=== PATIENT | female | born 1940 | race Caucasian/White ===

== ENCOUNTER 2017-11-03 06:51 | Day surgery (SDC) | payer MEDICARE, BC ==
--- NOTE | 2017-11-03 07:05 | PCM.PREANE ---
Preanesthetic Assessment - Anesthesia/Transfusion/Family Hx Anesthesia History: Prior Anesthesia Without Reaction Family History of Anesthesia Reaction: No Transfusion History: Prior Transfusion Without Reaction Intubation History: Unknown - Review of Systems General: No Symptoms Pulmonary: No Symptoms Cardiovascular: No Symptoms Gastrointestinal: No Symptoms Neurological: No Symptoms Other: Reports: None - Physical Assessment NPO Status Date: 11/02/17 NPO Status Time: 19:30 Pulse: 73 O2 Sat by Pulse Oximetry: 96 Respiratory Rate: 16 Blood Pressure: 133/80 Temperature: 97.0 C ASA Class: 2 Mental Status: Alert & Oriented x3 Airway Class: Mallampati = 1 Dentition: Reports: Normal Dentition Thyro-Mental Finger Breadths: 3 Mouth Opening Finger Breadths: 3 ROM/Head Extension: Full Lungs: Clear to Auscultation, Normal Respiratory Effort Cardiovascular: Regular Rate, Regular Rhythm - Allergies Allergies/Adverse Reactions: Allergies Allergy/AdvReac Type Severity Reaction Status Date / Time No Known Allergies Allergy Verified 11/02/17 13:26 - Anesthesia Plan Beta Ramon: Metoprolol Med Last Dose Date: 11/03/17 - Acknowledgements Anesthesia Type Planned: MAC Pt an Appropriate Candidate for the Planned Anesthesia: Yes Alternatives and Risks of Anesthesia Discussed w Pt/Guardian: Yes Pt/Guardian Understands and Agrees with Anesthesia Plan: Yes PreAnesthesia Questionnaire HEENT History: Reports: Cataract Cardiovascular History: Reports: Afib, Hypertension Respiratory History: Reports: None Gastrointestinal History: Reports: None, GERD (occas heartburn mainly with spicy foods) Genitourinary History: Reports: None 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 Musculoskeletal History: Reports: None Neurological History: Reports: None Psychiatric History: Reports: None Endocrine/Metabolic History: Reports: Hypothyroidism Hematologic History: Reports: None - Past Surgical History Head Surgeries/Procedures: Reports: None HEENT Surgical History: Reports: None Cardiovascular Surgical History: Reports: None Respiratory Surgical History: Reports: None GI Surgical History: Reports: None Female Surgical History: Reports: Hysterectomy Endocrine Surgical History: Reports: None Neurological Surgical History: Reports: None Musculoskeletal Surgical History: Reports: None Oncologic Surgical History: Reports: None Dermatological Surgical History: Reports: None - SUBSTANCE USE Smoking Status *Q: Never Smoker - HOME MEDS Home Medications: Home Meds Apixaban [Eliquis] 5 mg PO BID 11/02/17 [History] Ferrous Sulfate [Iron] 325 mg PO DAILY 11/02/17 [History] Gluc/Deep-Msm#1/Vit C/Jose Luis/Bor [Ovdxjst-Hcmpg-WGZ Complex Cplt] 1 tab PO DAILY 11/02/17 [History] Levothyroxine 25 mcg PO DAILY 11/02/17 [History] Losartan [Cozaar] 100 mg PO DAILY 11/02/17 [History] Lutein/Minerals/Vit A,C & E [Ocuvite] 1 tab PO DAILY 11/02/17 [History] Metoprolol Succinate 200 mg PO DAILY 11/02/17 [History] Rosuvastatin [Crestor] 10 mg PO DAILY 11/02/17 [History] Vitamin B Complex 1 cap PO DAILY 11/02/17 [History] amLODIPine Besylate [Amlodipine Besylate] 5 mg PO DAILY 11/02/17 [History] - CURRENT (IN HOUSE) MEDS Current Meds: Current Medications Brimonidine Tartrate (Alphagan 0.2% Ophth Soln) 0 ml EYELF ASDIRECTED ESTHER Stop: 11/03/17 18:00 Cefuroxime Sodium (Zinacef) 0 mg EYELF ASDIRECTED ESTHER Stop: 11/03/17 18:00 Lidocaine HCl (Xylocaine-Mpf 1%) 10 ml INJECT ASDIRECTED ESTHER Stop: 11/03/17 18:00 Phenylephrine HCl (Carlos Enrique-Synephrine 2.5% Ophth Soln) 0 ml EYELF ASDIRECTED ESTHER Stop: 11/03/17 18:00 Pilocarpine HCl (Pilocar 4% Ophth Soln) 0 ml EYELF ASDIRECTED ESTHER Stop: 11/03/17 18:00 Polymyxin/Trimethoprim Sulfate (Polytrim Ophth Soln) 0 ml EYELF ASDIRECTED ESTHER Stop: 11/03/17 18:00 Tetracaine HCl (Tetracaine 0.5% Steri-Unit Keira) 0 ml EYELF ASDIRECTED ESTHER Stop: 11/03/17 18:00 Tropicamide (Mydriacyl 1% Ophth Soln) 0 ml EYELF ASDIRECTED ESTHER Stop: 11/03/17 18:00
[2017-11-03] MEDS: Polymyxin B/Trimethoprim 10 ML Bottle EYELF SCH ×4 (07:08→08:40)
[2017-11-03] MEDS: Brimonidine 0.2% Ophth Soln 5 ML Bottle EYELF SCH ×4 (07:12→08:40)
[2017-11-03] MEDS: Phenylephrine 2.5% Ophth Soln 2 ML Bot EYELF SCH ×6 (07:16→08:19)
[2017-11-03] MEDS: Lidocaine 1% PF 2 ML SDV INJECT SCH ×2 (08:05→08:26)
[2017-11-03] MEDS: Tetracaine HCl/PF 0.5% 4 ML Bottle EYELF SCH ×3 (08:05→08:28)
[2017-11-03] MEDS: Cefuroxime 10 MG/ML SYRINGE EYELF SCH ×2 (08:06→08:39)
[2017-11-03] MEDS: Pilocarpine 4% Ophth Soln 15 ML Bot EYELF SCH ×2 (08:06→08:40)
--- NOTE | 2017-11-03 08:44 | PCM48HPAN ---
Post Anesthesia Note - EVALUATION WITHIN 48HRS OF ANESTHETIC Vital Signs in Normal Range: Yes Patient Participated in Evaluation: Yes Respiratory Function Stable: Yes Airway Patent: Yes Cardiovascular Function Stable: Yes Hydration Status Stable: Yes Pain Control Satisfactory: Yes Nausea and Vomiting Control Satisfactory: Yes Mental Status Recovered: Yes Pulse Rate: 73 SaO2: 96 Resp Rate: 16 Temperature: 97.0 C Blood Pressure: 133/80
== END 2017-11-03 08:50 | disposition home or self-care (01) ==
LOC: JD.SDS 06:51
PROVIDERS: ATTEND Ophthalmology
DX: H25.813 Combined forms of age-related cataract, bilateral (principal); H35.3131 Nonexudative age-related macular degeneration, bilateral, early dry stage; H35.363 Drusen (degenerative) of macula, bilateral; H16.103 Unspecified superficial keratitis, bilateral; H16.223 Keratoconjunctivitis sicca, not specified as Sjogren's, bilateral; H02.834 Dermatochalasis of left upper eyelid; H02.831 Dermatochalasis of right upper eyelid; I48.91 Unspecified atrial fibrillation; I10 Essential (primary) hypertension; E03.9 Hypothyroidism, unspecified; K21.9 Gastro-esophageal reflux disease without esophagitis; Z90.710 Acquired absence of both cervix and uterus; Z79.899 Other long term (current) drug therapy; Z79.02 Long term (current) use of antithrombotics/antiplatelets
CPT/HCPCS: 66984; C1780; J0697; A9270-GY; J2001

== ENCOUNTER 2017-12-08 09:56 | Day surgery (SDC) | payer MEDICARE, BC ==
[~2017-12-08 09:56] MED LIST: Cefuroxime 10 MG/ML SYRINGE EYERT SCH; Lidocaine 1% PF 2 ML SDV INJECT SCH; Pilocarpine 4% Ophth Soln 15 ML Bot EYERT SCH
[2017-12-08] MEDS: Polymyxin B/Trimethoprim 10 ML Bottle EYERT SCH ×3 (10:15→11:52)
[2017-12-08] MEDS: Brimonidine 0.2% Ophth Soln 5 ML Bottle EYERT SCH ×3 (10:19→11:52)
[2017-12-08] MEDS: Phenylephrine 2.5% Ophth Soln 2 ML Bot EYERT SCH ×5 (10:23→11:32)
--- NOTE | 2017-12-08 10:23 | PCM.PREANE ---
Preanesthetic Assessment - Anesthesia/Transfusion/Family Hx Anesthesia History: Prior Anesthesia Without Reaction Transfusion History: Prior Transfusion Without Reaction Intubation History: Unknown - Review of Systems General: No Symptoms Pulmonary: No Symptoms Cardiovascular: Other (Atrial fibrillation noted. On Eliquis. No changes noted. ) Neurological: No Symptoms Other: Reports: Easy Bruising, Thyroid Problems, Anxiety (Feeling very anxious today. She is not sure why. ) - Physical Assessment NPO Status Date: 12/07/17 NPO Status Time: 20:00 O2 Sat by Pulse Oximetry: 97 Respiratory Rate: 16 Vital Signs: Last Vital Signs Temp 36.3 C 12/08/17 10:00 Pulse 113 H 12/08/17 10:00 Resp 16 12/08/17 10:00 BP 151/91 H 12/08/17 10:00 Pulse Ox 97 12/08/17 10:00 Height: 1.65 m Weight: 68.039 kg ASA Class: 2 Mental Status: Alert & Oriented x3 Airway Class: Mallampati = 2 Thyro-Mental Finger Breadths: 3 Mouth Opening Finger Breadths: 3 ROM/Head Extension: Full Lungs: Clear to Auscultation, Normal Respiratory Effort Cardiovascular: Regular Rate, Regular Rhythm - Allergies Allergies/Adverse Reactions: Allergies Allergy/AdvReac Type Severity Reaction Status Date / Time No Known Allergies Allergy Verified 12/07/17 15:15 - Anesthesia Plan Beta Ramon: Metoprolol Med Last Dose Date: 12/08/17 Med Last Dose Time: 06:00 - Acknowledgements Anesthesia Type Planned: MAC Pt an Appropriate Candidate for the Planned Anesthesia: Yes Alternatives and Risks of Anesthesia Discussed w Pt/Guardian: Yes Pt/Guardian Understands and Agrees with Anesthesia Plan: Yes PreAnesthesia Questionnaire HEENT History: Reports: Cataract Cardiovascular History: Reports: Afib, Hypertension Respiratory History: Reports: None Gastrointestinal History: Reports: None, GERD (occas heartburn mainly with spicy foods) Genitourinary History: Reports: None 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 Musculoskeletal History: Reports: None Neurological History: Reports: None Psychiatric History: Reports: None Endocrine/Metabolic History: Reports: Hypothyroidism Hematologic History: Reports: None - Past Surgical History Head Surgeries/Procedures: Reports: None HEENT Surgical History: Reports: None Cardiovascular Surgical History: Reports: None Respiratory Surgical History: Reports: None GI Surgical History: Reports: None Female Surgical History: Reports: Hysterectomy Endocrine Surgical History: Reports: None Neurological Surgical History: Reports: None Musculoskeletal Surgical History: Reports: None Oncologic Surgical History: Reports: None Dermatological Surgical History: Reports: None - HOME MEDS Home Medications: Home Meds Apixaban [Eliquis] 5 mg PO BID 11/02/17 [History] Ferrous Sulfate [Iron] 325 mg PO DAILY 11/02/17 [History] Gluc/Deep-Msm#1/Vit C/Jose Luis/Bor [Edyzwhi-Rtgqe-CEK Complex Cplt] 1 tab PO DAILY 11/02/17 [History] Levothyroxine 25 mcg PO DAILY 11/02/17 [History] Losartan [Cozaar] 100 mg PO DAILY 11/02/17 [History] Lutein/Minerals/Vit A,C & E [Ocuvite] 1 tab PO DAILY 11/02/17 [History] Metoprolol Succinate 200 mg PO DAILY 11/02/17 [History] Rosuvastatin [Crestor] 10 mg PO DAILY 11/02/17 [History] Vitamin B Complex 1 cap PO DAILY 11/02/17 [History] amLODIPine Besylate [Amlodipine Besylate] 5 mg PO DAILY 11/02/17 [History] - CURRENT (IN HOUSE) MEDS Current Meds: Current Medications Brimonidine Tartrate (Alphagan 0.2% Ophth Soln) 0 ml EYERT ASDIRECTED ESTHER Stop: 12/08/17 18:00 Cefuroxime Sodium (Zinacef) 0 mg EYERT ASDIRECTED ESTHER Stop: 12/08/17 18:00 Lidocaine HCl (Xylocaine-Mpf 1%) 0 ml INJECT ASDIRECTED ESTHER Stop: 12/08/17 18:00 Phenylephrine HCl (Carlos Enrique-Synephrine 2.5% Ophth Soln) 0 ml EYERT ASDIRECTED ESTHER Stop: 12/08/17 18:00 Pilocarpine HCl (Pilocar 4% Ophth Soln) 0 ml EYERT ASDIRECTED ESTHER Stop: 12/08/17 18:00 Polymyxin/Trimethoprim Sulfate (Polytrim Ophth Soln) 0 ml EYERT ASDIRECTED ESTHER Stop: 12/08/17 18:00 Last Admin: 12/08/17 10:15 Dose: 1 drop Tetracaine HCl (Tetracaine 0.5% Steri-Unit Keira) 0 ml EYERT ASDIRECTED ESTHER Stop: 12/08/17 18:00 Tropicamide (Mydriacyl 1% Oph Soln) 0 ml EYERT ASDIRECTED ESTHER Stop: 12/08/17 18:00
[2017-12-08] MEDS: Tropicamide 1% Ophth Soln 3 ML Bottle EYERT SCH ×4 (10:30→11:11)
[2017-12-08] MEDS: Tetracaine HCl/PF 0.5% 4 ML Bottle EYERT SCH ×2 (11:19→11:40)
--- NOTE | 2017-12-08 11:56 | PCM48HPAN ---
Post Anesthesia Note - EVALUATION WITHIN 48HRS OF ANESTHETIC Vital Signs in Normal Range: Yes Patient Participated in Evaluation: Yes Respiratory Function Stable: Yes Airway Patent: Yes Cardiovascular Function Stable: Yes Hydration Status Stable: Yes Pain Control Satisfactory: Yes Nausea and Vomiting Control Satisfactory: Yes Mental Status Recovered: Yes Pulse Rate: 111 SaO2: 99 Resp Rate: 16 Blood Pressure: 135/80
== END 2017-12-08 12:05 | disposition home or self-care (01) ==
LOC: JD.SDS 09:56
PROVIDERS: ATTEND Ophthalmology
DX: H25.811 Combined forms of age-related cataract, right eye (principal); H21.81 Floppy iris syndrome; I48.91 Unspecified atrial fibrillation; H21.40 Pupillary membranes, unspecified eye; I10 Essential (primary) hypertension; K21.9 Gastro-esophageal reflux disease without esophagitis; E03.9 Hypothyroidism, unspecified; H35.363 Drusen (degenerative) of macula, bilateral; H35.3131 Nonexudative age-related macular degeneration, bilateral, early dry stage; Z79.01 Long term (current) use of anticoagulants; Z79.899 Other long term (current) drug therapy
CPT/HCPCS: 66982; C1780; J0697; J2001; A9270-GY

== ENCOUNTER 2019-08-24 07:05 | Day surgery (SDC) | payer MEDICARE, BC ==
[~2019-08-24 07:05] MED LIST changes: -Cefuroxime 10 MG/ML SYRINGE EYERT SCH; +Lactated Ringers 1,000 ML IV SCH; -Lidocaine 1% PF 2 ML SDV INJECT SCH; +Lidocaine 1%/Sod Bicarbonate in NS 8.4% 1 ML Syringe IDERM PRN; -Pilocarpine 4% Ophth Soln 15 ML Bot EYERT SCH; +Sodium Chloride 0.9% 10 ML Syringe FLUSH PRN
[2019-08-24] MEDS ORDERED: Propofol 200 MG/20 ML SDV ONE (07:12)
[2019-08-24] MEDS ORDERED: Lidocaine 1% 4 ML ONE (07:12)
[2019-08-24] MEDS ORDERED: Ondansetron 4 MG/2 ML SDV ONE (07:12)
[2019-08-24] MEDS ORDERED: Rocuronium 50 MG/5 ML Vial ONE (07:12)
[2019-08-24] MEDS ORDERED: fentaNYL 250 MCG/5 ML SDV ONE (07:12)
[2019-08-24] MEDS ORDERED: Midazolam 1 MG/ML 2 ML SDV ONE (07:12)
[2019-08-24] MEDS ORDERED: Lidocaine 1% with EPINEPHrine 1:100,000 20 ML MDV ONE (07:22)
[2019-08-24] MEDS ORDERED: Bupivacaine 0.5%/EPINEPHrine 1:200,000 50 ML MDV ONE (07:22)
--- NOTE | 2019-08-24 07:28 | PCM.PREANE ---
Preanesthetic Assessment - Procedure Proposed Procedure: lap choley - Anesthesia/Transfusion/Family Hx Anesthesia History: Prior Anesthesia Without Reaction Family History of Anesthesia Reaction: No Transfusion History: Prior Transfusion Without Reaction Intubation History: Unknown - Review of Systems General: No Symptoms Pulmonary: No Symptoms Cardiovascular: No Symptoms Gastrointestinal: Abdominal Pain (abdominal pain right side) Neurological: No Symptoms Other: Reports: Thyroid Problems - Physical Assessment NPO Status Date: 08/23/19 NPO Status Time: 21:00 Vital Signs: 128/81 66 98% 97.4 16 Height: 5 ft 4 in Weight: 63.185 kg ASA Class: 2 Mental Status: Alert & Oriented x3 Airway Class: Mallampati = 1 Dentition: Reports: Normal Dentition Thyro-Mental Finger Breadths: 3 Mouth Opening Finger Breadths: 3 ROM/Head Extension: Full Lungs: Clear to Auscultation, Normal Respiratory Effort Cardiovascular: Regular Rate, Irregular Rhythm - Allergies Allergies/Adverse Reactions: Allergies Allergy/AdvReac Type Severity Reaction Status Date / Time rosuvastatin [From Crestor] Allergy Muscle Verified 08/23/19 15:22 Aches - Blood Blood Available: No - Anesthesia Plan Beta Ramon: Metoprolol Med Last Dose Date: 08/24/19 Med Last Dose Time: 06:15 - Acknowledgements Anesthesia Type Planned: General Anesthesia Pt an Appropriate Candidate for the Planned Anesthesia: Yes Alternatives and Risks of Anesthesia Discussed w Pt/Guardian: Yes Pt/Guardian Understands and Agrees with Anesthesia Plan: Yes PreAnesthesia Questionnaire HEENT History: Reports: Cataract, Impaired Vision Other HEENT History: wears glasses Cardiovascular History: Reports: Afib, CAD, High Cholesterol, Hypertension Respiratory History: Reports: None Gastrointestinal History: Reports: Cholelithiasis, Colon Polyp, Diverticulosis, GERD Other Gastrointestinal History: schatzski's ring Genitourinary History: Reports: None 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 Musculoskeletal History: Reports: None Neurological History: Reports: None Psychiatric History: Reports: None Endocrine/Metabolic History: Reports: Hypothyroidism Hematologic History: Reports: Anemia, Anticoagulation Therapy Immunologic History: Reports: None Oncologic (Cancer) History: Reports: None Dermatologic History: Reports: None - Past Surgical History Head Surgeries/Procedures: Reports: None HEENT Surgical History: Reports: None, Cataract Surgery Cardiovascular Surgical History: Reports: None Respiratory Surgical History: Reports: None GI Surgical History: Reports: None, Appendectomy, Colonoscopy, EGD Female Surgical History: Reports: Hysterectomy Male Surgical History: Reports: None Endocrine Surgical History: Reports: None Neurological Surgical History: Reports: None Musculoskeletal Surgical History: Reports: None Oncologic Surgical History: Reports: None Dermatological Surgical History: Reports: None - SUBSTANCE USE Smoking Status *Q: Never Smoker Tobacco Use Within Last Twelve Months: No Second Hand Smoke Exposure: No Days Per Week of Alcohol Use: 0 Recreational Drug Use History: No - HOME MEDS Home Medications: Home Meds Apixaban [Eliquis] 5 mg PO BID 11/02/17 [History] Levothyroxine 25 mcg PO DAILY 11/02/17 [History] Losartan [Cozaar] 100 mg PO DAILY 11/02/17 [History] Metoprolol Succinate 200 mg PO DAILY 11/02/17 [History] amLODIPine Besylate [Amlodipine Besylate] 5 mg PO DAILY 11/02/17 [History] Ascorbic Acid [Vitamin C] 250 mg PO DAILY 08/23/19 [History] Cholecalciferol (Vitamin D3) [Vitamin D3] 1,000 unit PO DAILY 08/23/19 [History] Cranberry Fruit Extract [Cranberry] 300 mg PO DAILY 08/23/19 [History] Docusate Sodium [Colace] 100 mg PO TID 08/23/19 [History] Ferrous Sulfate [Iron] 325 mg PO DAILY 08/23/19 [History] Folic Acid/Vitamin B Comp W-C [Super B-Complex Folic-Vit C Tb] 400 mcg PO DAILY 08/23/19 [History] Glucosam/Deep-Col.Cplx/D3/C/Mn [Pjdpfadxhqk-Mfpdultkuet-E0] 1 tab PO DAILY 08/23 [History] Omeprazole Magnesium [Prilosec Otc] 20 mg PO DAILY PRN 08/23/19 [History] Psyllium [Metamucil] 0.52 gm PO BID 08/23/19 [History] Red Yeast Rice 600 mg PO DAILY 08/23/19 [History] polyethylene glycoL 3350 [MiraLAX] 17 gm PO DAILY 08/23/19 [History] - CURRENT (IN HOUSE) MEDS Current Meds: Current Medications Lactated Ringer's (Ringers, Lactated) 1,000 mls @ 125 mls/hr IV ASDIRECTED ESTHER Stop: 08/24/19 23:00 Lidocaine/Sodium Bicarbonate (Buffered Lidocaine 1% In Ns 8.4%) 0.25 ml IDERM ONETIME PRN PRN Reason: Prior to IV Start Stop: 08/24/19 16:00 Sodium Chloride (Saline Flush) 10 ml FLUSH ASDIRECTED PRN PRN Reason: Keep Vein Open Stop: 08/24/19 18:00 Discontinued Medications Fentanyl (Sublimaze) Confirm Administered Dose 250 mcg .ROUTE .STK-MED ONE Stop: 08/24/19 07:13 Lidocaine HCl (Xylocaine-Mpf 1%) Confirm Administered Dose 4 mls @ as directed .ROUTE .STK-MED ONE Stop: 08/24/19 07:13 Midazolam HCl (Versed 1 Mg/Ml) Confirm Administered Dose 2 mg .ROUTE .STK-MED ONE Stop: 08/24/19 07:13 Ondansetron HCl (Zofran) Confirm Administered Dose 4 mg .ROUTE .STK-MED ONE Stop: 08/24/19 07:13 Propofol (Diprivan 20 Ml) Confirm Administered Dose 200 mg .ROUTE .STK-MED ONE Stop: 08/24/19 07:13 Rocuronium [place] (Zemuron) Confirm Administered Dose 50 mg .ROUTE .STK-MED ONE Stop: 08/24/19 07:13
[2019-08-24] MEDS ORDERED: ceFAZolin 1 GM Vial ONE (07:51)
[2019-08-24] MEDS ORDERED: Phenylephrine/Normal Saline 100 MCG/ML 10 ML Syringe ONE (08:10)
[2019-08-24] MEDS ORDERED: fentaNYL 100 MCG/2 ML SDV IVPUSH PRN (08:23)
[2019-08-24] MEDS ORDERED: Ondansetron 4 MG/2 ML SDV IVPUSH PRN (08:23)
[2019-08-24] MEDS ORDERED: HYDROmorphone 0.5 MG/0.5 ML Syringe IVPUSH PRN (08:23)
[2019-08-24] MEDS ORDERED: Neostigmine Methylsulfate 1 MG/ML 5 ML Syringe ONE (08:27)
[2019-08-24] MEDS ORDERED: Lactated Ringers 1,000 ML ONE (08:47)
--- NOTE | 2019-08-24 09:07 | PCM.POSTAN ---
POST ANESTHESIA ASSESSMENT - MENTAL STATUS Mental Status: Alert, Oriented - VITAL SIGNS Vital Signs: Last Vital Signs Temp 97.4 F 08/24/19 07:10 Pulse 66 08/24/19 07:10 Resp 16 08/24/19 07:10 BP 128/81 08/24/19 07:10 Pulse Ox 98 08/24/19 07:10 146/92 111 10 98.0 99% - RESPIRATORY Respiratory Status: Respiratory Rate WNL, Airway Patent, O2 Saturation Stable, Supplemental Oxygen - CARDIOVASCULAR CV Status: Pulse Rate WNL, Blood Pressure Stable - GASTROINTESTINAL GI Status: No Symptoms - PAIN Pain Score: 3 - POST OP HYDRATION Hydration Status: Adequate & Stable
--- NOTE | 2019-08-24 09:11 | PCM.OPNOTE ---
- General Post-Op/Procedure Note Date of Surgery/Procedure: 08/24/19 Operative Procedure(s): Diagnostic laparoscopy with biopsy Findings: Gallbladder mass with peritoneal implants Pre Op Diagnosis: Cholelithiasis Post-Op Diagnosis: Gallbladder mass with peritoneal implants Anesthesia Technique: General ET Tube Primary Surgeon: Sarah Olivia Anesthesia Provider: Valdez Rodrígeuz Pathology: 1. Ascites fluid for cytology 2. Right abdominal wall peritoneal implants Fluid Replacement, Intraop: 1,000 Output, Urine Amount: 0 EBL in mLs: 2 Complications: none apparent Condition: Good
--- NOTE | 2019-08-24 09:41 | PCM.PRNOTE ---
- Free Text/Narrative Note: Operative Report Date of surgery: August 24, 2019 Preoperative diagnosis: Cholelithiasis Postoperative diagnosis: Gallbladder mass with peritoneal implants Procedure: Diagnostic laparoscopy with biopsy Surgeon: Dr. Sarah Olivia Anesthesia: General ET Local Tanker Truck Driver: Valdez Rodríguez CRNA Estimated blood loss: 2 mL IV fluids: 1000 mL Urine output: 0 mL Drains and lines: None Findings: Mass involving the gallbladder which was extending to the liver edge and surrounding omentum. Peritoneal implants noted along the right diaphragm and bilateral abdominal baxter. Peritoneal implants also noted on the omentum. Tethering of the omentum to the abdominal wall near the umbilicus Pathology: 1. Ascites sent for cytology 2. Peritoneal implants from right abdominal wall Indication for the procedure: The patient is a 79-year-old lady presented to my clinic with complaints of right upper quadrant pain. She did have other abdominal pain still changes which resulted in her undergoing a colonoscopy. This is unrevealing for the etiology of her pain. Upon further analysis her symptoms did appear to be due to cholelithiasis. She has a preoperative imaging which does indicate presence of cholelithiasis. She was scheduled for laparoscopic cholecystectomy, open. Discussed risks of infection bleeding and possible bile duct injury. Her written consent was obtained. Description of the procedure: The patient was brought to the operating room and placed in supine position on the operating table. She had successful induction of general anesthesia and was intubated without difficulty. The patient did have administration of antibiotics per SCI P guidelines, 2 g Ancef IV 1. She was then prepped and draped in standard surgical fashion and a timeout was performed. We began by making a infraumbilical vertical incision. This was deepened down to the fascia which was entered sharply using curved Carpio scissors. Upon opening the fascia, we noted peritoneal fluid extruded from the wound. A stay suture of 0 Vicryl was placed and the abdomen was entered bluntly. A 12 mm [place] port was then placed into the abdomen. The abdomen was in insufflated to 18 mmHg. The camera was inserted and inspected for any evidence of injury. There was no evidence of any trauma from entry. We then proceeded to visualize the right upper quadrant. It was immediately noted that the gallbladder was protruding up from underneath the liver edge and had a white appearance. A thickened texture to the gallbladder wall and the anterior superior portion of the bladder. There were also white scattered peritoneal implants noted on the right and left abdominal baxter. This was most prominent over the dome of the liver on the right hemidiaphragm. There was also a moderate amount of ascites noted in the abdomen. We did note further implants scattered throughout the omentum. A 5 mm port was inserted into the left upper quadrant. A suction airport operations supervisor was used to remove ascites fluid which was sent for cytology. We then inserted a biopsy forceps and removed peritoneal implants from the right abdominal wall. Photographs were taken intraoperatively. We then inspected more fully noted that the omentum appeared to be tethered to the abdominal wall near the umbilicus. There appeared to be peritoneal implants surrounding this area. The abdomen was then desufflated and the ports removed. The fascial defect at the umbilicus was closed with the 0 Vicryl suture. The ports were removed and the sites were then irrigated with sterile water. The skin was closed with a 4- 0 Monocryl suture. Dermabond was used to cover the skin. Sponge and needle counts were correct. The patient was awakened and extubated without difficulty. She was transported to the PACU in stable condition. Sarah Olivia MD General Surgery
--- NOTE | 2019-08-24 10:20 | PCM48HPAN ---
Post Anesthesia Note - EVALUATION WITHIN 48HRS OF ANESTHETIC Vital Signs in Normal Range: Yes Patient Participated in Evaluation: Yes Respiratory Function Stable: Yes Airway Patent: Yes Cardiovascular Function Stable: Yes Hydration Status Stable: Yes Pain Control Satisfactory: Yes Nausea and Vomiting Control Satisfactory: Yes Mental Status Recovered: Yes ( crying, spent time with couple. ) Vital Signs: Last Vital Signs Temp 98.1 F 08/24/19 09:46 Pulse 104 H 08/24/19 10:15 Resp 16 08/24/19 10:15 BP 146/86 H 08/24/19 10:15 Pulse Ox 96 08/24/19 10:15
== END 2019-08-24 10:40 | disposition home or self-care (01) ==
LOC: JD.SDS 07:05
PROVIDERS: ATTEND Surgery
DX: C78.89 Secondary malignant neoplasm of other digestive organs (principal); C80.1 Malignant (primary) neoplasm, unspecified; R18.8 Other ascites; I10 Essential (primary) hypertension; I48.91 Unspecified atrial fibrillation; K21.9 Gastro-esophageal reflux disease without esophagitis; E03.9 Hypothyroidism, unspecified; D64.9 Anemia, unspecified; I25.10 Atherosclerotic heart disease of native coronary artery without angina pectoris; E78.00 Pure hypercholesterolemia, unspecified; Z79.01 Long term (current) use of anticoagulants; Z79.899 Other long term (current) drug therapy; Z88.8 Allergy status to other drugs, medicaments and biological substances; K80.20 Calculus of gallbladder without cholecystitis without obstruction
CPT/HCPCS: 49321; 88112; 88305; 88341; 88342; 93005; J0690; J2001; J2250; J2370; J2405; J2704; J2710; J3010; J3490; J7120; 00840

== ENCOUNTER 2019-10-28 19:44 | Inpatient (IN) | payer MEDICARE, BC, OTHER ==
[2019-10-28] MEDS ORDERED: Ondansetron 4 MG/2 ML SDV IVPUSH ONE (20:39)
[2019-10-28] MEDS ORDERED: Sodium Chloride 0.9% 1,000 ML IV SCH (20:45)
--- NOTE | 2019-10-28 20:54 | EDM.PDOC ---
ED HPI GENERAL MEDICAL PROBLEM - General Chief Complaint: Gastrointestinal Problem Stated Complaint: VOMITING Time Seen by Provider: 10/28/19 20:15 Source of Information: Reports: Patient History Limitations: Reports: No Limitations - History of Present Illness INITIAL COMMENTS - FREE TEXT/NARRATIVE: This is a 79-year-old female. Over the last couple days she has been complaining of nausea and chills but no documented fever. Around 3 PM this evening she had onset of nausea and vomiting. Over the last few days she is also had some limited appetite. She thinks she might of had a low-grade fever but again she did not document it. She does have a dry cough that is nonproductive and she denies any significant shortness of breath. She also has atrial fibrillation with a fast ventricular response in the ER. 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 Due to the nausea and vomiting and she feels like she is got a very dry mouth she comes to the ER for evaluation. She does not think she has been exposed to anyone with the COVID- 19. - Related Data Allergies Allergy/AdvReac Type Severity Reaction Status Date / Time rosuvastatin [From Crestor] Allergy Muscle Verified 10/28/19 20:08 Aches Home Meds: Home Meds Apixaban [Eliquis] 5 mg PO BID 11/02/17 [History] Levothyroxine 25 mcg PO DAILY 11/02/17 [History] Losartan [Cozaar] 100 mg PO DAILY 11/02/17 [History] Metoprolol Succinate 200 mg PO DAILY 11/02/17 [History] amLODIPine Besylate [Amlodipine Besylate] 5 mg PO DAILY 11/02/17 [History] Ascorbic Acid [Vitamin C] 250 mg PO DAILY 08/23/19 [History] Cholecalciferol (Vitamin D3) [Vitamin D3] 1,000 unit PO DAILY 08/23/19 [History] Cranberry Fruit Extract [Cranberry] 300 mg PO DAILY 08/23/19 [History] Docusate Sodium [Colace] 100 mg PO TID 08/23/19 [History] Ferrous Sulfate [Iron] 325 mg PO DAILY 08/23/19 [History] Folic Acid/Vitamin B Comp W-C [Super B-Complex Folic-Vit C Tb] 400 mcg PO DAILY 08/23/19 [History] Glucosam/Deep-Col.Cplx/D3/C/Mn [Iylqlokxoyf-Nmieimxgsxt-F9] 1 tab PO DAILY 08/23 [History] Omeprazole Magnesium [Prilosec Otc] 20 mg PO DAILY PRN 08/23/19 [History] Psyllium [Metamucil] 0.52 gm PO BID 08/23/19 [History] Red Yeast Rice 600 mg PO DAILY 08/23/19 [History] polyethylene glycoL 3350 [MiraLAX] 17 gm PO DAILY 08/23/19 [History] traMADol HCl [Tramadol HCl] 50 mg PO Q6H PRN 3 Days #12 tablet 08/24/19 [Rx] Past Medical History HEENT History: Reports: Cataract, Impaired Vision Other HEENT History: wears glasses Cardiovascular History: Reports: Afib, CAD, High Cholesterol, Hypertension Respiratory History: Reports: None Gastrointestinal History: Reports: Cholelithiasis, Colon Polyp, Diverticulosis, GERD Other Gastrointestinal History: schatzski's ring, gallbladder cancer Genitourinary History: Reports: None [employer]VENUE [employer]OR History: Reports: None Musculoskeletal History: Reports: None Neurological History: Reports: None Psychiatric History: Reports: None Endocrine/Metabolic History: Reports: Hypothyroidism Hematologic History: Reports: Anemia, Anticoagulation Therapy Immunologic History: Reports: None Oncologic (Cancer) History: Reports: None Dermatologic History: Reports: None - Past Surgical History Head Surgeries/Procedures: Reports: None HEENT Surgical History: Reports: None, Cataract Surgery Cardiovascular Surgical History: Reports: None Respiratory Surgical History: Reports: None GI Surgical History: Reports: None, Appendectomy, Colonoscopy, EGD Female Surgical History: Reports: Hysterectomy Endocrine Surgical History: Reports: None Neurological Surgical History: Reports: None Musculoskeletal Surgical History: Reports: None Oncologic Surgical History: Reports: None Dermatological Surgical History: Reports: None Social & Family History - Tobacco Use Smoking Status *Q: Never Smoker Second Hand Smoke Exposure: No - Caffeine Use Caffeine Use: Reports: None - Recreational Drug Use Recreational Drug Use: No ED ROS GENERAL - Review of Systems Review Of Systems: See Below Constitutional: Reports: Chills, Malaise, Decreased Appetite. Denies: Fever HEENT: Reports: Other (By mouth) Respiratory: Reports: Cough. Denies: Shortness of Breath, Wheezing, Sputum Cardiovascular: Reports: No Symptoms Endocrine: Reports: No Symptoms GI/Abdominal: Reports: Abdominal Pain, Nausea, Vomiting. Denies: Constipation, Diarrhea : Reports: No Symptoms Musculoskeletal: Reports: No Symptoms Skin: Reports: No Symptoms Neurological: Reports: No Symptoms Psychiatric: Reports: No Symptoms Hematologic/Lymphatic: Reports: No Symptoms ED EXAM, GI/ABD - Physical Exam Exam: See Below Text/Narrative:: She is noted to have a drawer of 99.5 in the ER and a pulse ox of 90% on room air but she denies of having shortness of breath Exam Limited By: No Limitations General Appearance: Alert, WD/WN, No Apparent Distress Eyes: Bilateral: Normal Appearance Ears: Normal External Exam Nose: Normal Inspection. No: Nasal Drainage, Clear Rhinorrhea Throat/Mouth: Normal Inspection, Normal Lips, Normal Voice, No Airway Compromise , Other (Dry mucous membranes) Head: Normocephalic Neck: Supple Respiratory/Chest: No Respiratory Distress, Lungs Clear, Normal Breath Sounds. No: Respiratory Distress, Crackles, Rales, Rhonchi, Wheezing Cardiovascular: No Murmur, Tachycardia, Irregularly Irregular GI/Abdominal Exam: Soft, Other (She has chronic abdominal pain due to the gallbladder cancer, mostly on the right upper quadrant and right flank area). No: Guarding, Rigid, Rebound, Tender Back Exam: Full Range of Motion Extremities: Normal Inspection, Normal Range of Motion, Other (Poor skin turgor) Neurological: Alert, Oriented Psychiatric: Normal Affect, Normal Mood Skin Exam: Warm, Dry EKG INTERPRETATION EKG Date: 10/28/19 Time: 20:35 EKG Interpretation Comments: KG shows an atrial fibrillation rate of 128 a fast ventricular response, there is no acute ST or T wave changes there are no ischemia noted. She does have a PVC noted. Course - Vital Signs Last Recorded V/S: Last Vital Signs Temp 99.5 F 10/28/19 20:06 Pulse 115 H 10/28/19 21:51 Resp 18 10/28/19 21:51 BP 125/63 10/28/19 21:51 Pulse Ox 91 L 10/28/19 21:51 - Orders/Labs/Meds Orders: Active Orders 24 hr Category Date Time Status EKG 12 Lead [EKG Documentation Completion] [RC] STAT Care 10/28/19 20:39 Active CXR [Chest 1V Frontal] [CR] Stat Exams 10/28/19 20:19 Taken CORONAVIRUS COVID-19 PCR PHL Stat Lab 10/28/19 21:00 Received CULTURE BLOOD [BC] Stat Lab 10/28/19 20:50 Received CULTURE BLOOD [BC] Stat Lab 10/28/19 20:56 Received UA W/MICROSCOPIC [URIN] Stat Lab 10/28/19 20:18 Ordered Sodium Chloride 0.9% [Normal Saline] 1,000 ml Med 10/28/19 20:45 Active IV ASDIRECTED Blood Culture x2 Reflex Set [OM.PC] Stat Oth 10/28/19 20:38 Ordered Medication Orders Sodium Chloride (Normal Saline) 1,000 mls @ 500 mls/hr IV ASDIRECTED ESTHER Last Admin: 10/28/19 21:29 Dose: 500 mls/hr Labs: Laboratory Tests 10/28/19 10/28/19 10/28/19 Range/Units 20:56 20:56 20:56 WBC 7.76 (3.98-10.04) K/mm3 RBC 4.25 (3.98-5.22) M/mm3 Hgb 13.0 (11.2-15.7) gm/dl Hct 38.6 (34.1-44.9) % MCV 90.8 (79.4-94.8) fl MCH 30.6 (25.6-32.2) pg MCHC 33.7 (32.2-35.5) g/dl RDW Std Deviation 44.4 (36.4-46.3) fL Plt Count 314 (182-369) K/mm3 MPV 10.4 (9.4-12.3) fl Neut % (Auto) 86.6 H (34.0-71.1) % Lymph % (Auto) 6.7 L (19.3-51.7) % [place] % (Auto) 5.9 (4.7-12.5) % Eos % (Auto) 0.4 L (0.7-5.8) Baso % (Auto) 0.1 (0.1-1.2) % Neut # (Auto) 6.72 H (1.56-6.13) K/mm3 Lymph # (Auto) 0.52 L (1.18-3.74) K/mm3 [place] # (Auto) 0.46 H (0.24-0.36) K/mm3 Eos # (Auto) 0.03 L (0.04-0.36) K/mm3 Baso # (Auto) 0.01 (0.01-0.08) K/mm3 Manual Slide Review Abnormal smear Sodium 133 L (136-145) mEq/L Potassium 4.1 (3.5-5.1) mEq/L Chloride 97 L (98-107) mEq/L Carbon Dioxide 24 (21-32) mEq/L Anion Gap 16.1 H (5-15) BUN 12 (7-18) mg/dL Creatinine 0.8 (0.55-1.02) mg/dL Est Cr Clr Drug Dosing 49.24 mL/min Estimated GFR (MDRD) > 60 (>60) mL/min BUN/Creatinine Ratio 15.0 (14-18) Glucose 133 H (83-115) mg/dL Lactic Acid 1.6 (0.4-2.0) mmol/L Calcium 9.3 (8.5-10.1) mg/dL Ferritin (8-252) ng/ml Total Bilirubin 2.5 H (0.2-1.0) mg/dL AST 878 H (15-37) U/L ALT 692 H (14-59) U/L Alkaline Phosphatase 661 H (46-116) U/L Lactate Dehydrogenase (81-234) U/L C-Reactive Protein (<1.0) mg/dL Total Protein 6.9 (6.4-8.2) g/dl Albumin 3.2 L (3.4-5.0) g/dl Globulin 3.7 gm/dL Albumin/Globulin Ratio 0.9 L (1-2) 10/28/19 10/28/19 Range/Units 20:56 20:56 WBC (3.98-10.04) K/mm3 RBC (3.98-5.22) M/mm3 Hgb (11.2-15.7) gm/dl Hct (34.1-44.9) % MCV (79.4-94.8) fl MCH (25.6-32.2) pg MCHC (32.2-35.5) g/dl RDW Std Deviation (36.4-46.3) fL Plt Count (182-369) K/mm3 MPV (9.4-12.3) fl Neut % (Auto) (34.0-71.1) % Lymph % (Auto) (19.3-51.7) % [place] % (Auto) (4.7-12.5) % Eos % (Auto) (0.7-5.8) Baso % (Auto) (0.1-1.2) % Neut # (Auto) (1.56-6.13) K/mm3 Lymph # (Auto) (1.18-3.74) K/mm3 [place] # (Auto) (0.24-0.36) K/mm3 Eos # (Auto) (0.04-0.36) K/mm3 Baso # (Auto) (0.01-0.08) K/mm3 Manual Slide Review Sodium (136-145) mEq/L Potassium (3.5-5.1) mEq/L Chloride (98-107) mEq/L Carbon Dioxide (21-32) mEq/L Anion Gap (5-15) BUN (7-18) mg/dL Creatinine (0.55-1.02) mg/dL Est Cr Clr Drug Dosing mL/min Estimated GFR (MDRD) (>60) mL/min BUN/Creatinine Ratio (14-18) Glucose (83-115) mg/dL Lactic Acid (0.4-2.0) mmol/L Calcium (8.5-10.1) mg/dL Ferritin 9419 H (8-252) ng/ml Total Bilirubin (0.2-1.0) mg/dL AST (15-37) U/L ALT (14-59) U/L Alkaline Phosphatase (46-116) U/L Lactate Dehydrogenase 588 H (81-234) U/L C-Reactive Protein 4.0 H* (<1.0) mg/dL Total Protein (6.4-8.2) g/dl Albumin (3.4-5.0) g/dl Globulin gm/dL Albumin/Globulin Ratio (1-2) Meds: Medications Generic Name Dose Route Start Last Admin Trade Name Freq PRN Reason Stop Dose Admin Sodium Chloride 1,000 mls @ 500 mls/hr 10/28/19 20:45 10/28/19 21:29 Normal Saline IV 500 mls/hr ASDIRECTED ESTHER Administration Discontinued Medications Generic Name Dose Route Start Last Admin Trade Name Freq PRN Reason Stop Dose Admin Diltiazem HCl 10 mg 10/28/19 21:14 10/28/19 22:48 Cardizem IVPUSH 10/28/19 21:15 Not Given ONETIME ONE Ondansetron HCl 4 mg 10/28/19 20:39 10/28/19 21:29 Zofran IVPUSH 10/28/19 20:40 4 mg ONETIME ONE Administration - Radiology Interpretation Free Text/Narrative:: 1 view chest x-ray does not show any acute infiltrates but a mildly enlarged heart. - Re-Assessments/Exams Free Text/Narrative Re-Assessment/Exam: 10/28/19 22:00 Does not appear to be in acute distress. She is tolerating the fluids well without increasing shortness of breath. Her pulse ox is running between 88 and 91 on room air. 10/28/19 22:35 Get the monitor she is jumping from 120s to 140s but if you look at the pulse ox pulse is consistently around 100 and is not very unlikely drying oven tender suggests. I will not provide any cardia exam at this time since her blood pressure is low in the pulse ox pulse appears to be normal. 10/28/19 22:49 To the patient regarding being admitted to the hospital for dehydration, atrial fibrillation with a fast ventricular response and the possibility of her mild symptoms and lab work to suggest she might have COVID-19. The absolute neutrophil count over the absolute lymphocyte count is 13. Her ferritin level is 9419, her liver enzymes are all elevated, his CRP is elevated and her LDH is elevated. This could be related to her gallbladder cancer that has been untreated however with her cough her pulse ox between 88 and 92 in the ER and her nausea and vomiting and her fatigue and possible chills and low-grade fever at home I spoke to Dr. Elena and he will put the patient in for further evaluation and treatment. Departure - Departure Time of Disposition: 22:51 Disposition: Admitted As Inpatient 66 Condition: Fair Clinical Impression: Atrial fibrillation with rapid ventricular response, Hypoxemia, Dehydration, Suspected COVID-19 virus infection, Gallbladder cancer, carcinoma - Discharge Information Referrals: aJni Saldivar MD [Primary Care Provider] - Forms: ED Department Discharge Sepsis Event Note - Evaluation Sepsis Screening Result: No Definite Risk - Focused Exam Vital Signs: Vital Signs Temp Pulse Resp BP Pulse Ox 10/28/19 21:51 115 H 18 125/63 91 L 10/28/19 20:06 99.5 F 120 H 20 138/85 90 L Date Exam was Performed: 10/28/19 Time Exam was Performed: 22:49 ED Communication - ED Communication Date/Time Date: 10/28/19 Time Called: 22:53 - Discussed Case With (1) Discussed Case With (1): Admitting Provider Person/s Notified (1): Juma Means III (He will admit the patient for further evaluation and treatment) - My Orders Last 24 Hours: My Active Orders 10/28/19 20:18 UA W/MICROSCOPIC [URIN] Stat 10/28/19 20:19 CXR [Chest 1V Frontal] [CR] Stat 10/28/19 20:38 Blood Culture x2 Reflex Set [OM.PC] Stat 10/28/19 20:39 EKG 12 Lead [EKG Documentation Completion] [RC] STAT 10/28/19 20:45 Sodium Chloride 0.9% [Normal Saline] 1,000 ml IV ASDIRECTED 10/28/19 20:50 CULTURE BLOOD [BC] Stat 10/28/19 20:56 CULTURE BLOOD [BC] Stat 10/28/19 21:00 CORONAVIRUS COVID-19 PCR PHL Stat - Assessment/Plan Last 24 Hours: My Active Orders 10/28/19 20:18 UA W/MICROSCOPIC [URIN] Stat 10/28/19 20:19 CXR [Chest 1V Frontal] [CR] Stat 10/28/19 20:38 Blood Culture x2 Reflex Set [OM.PC] Stat 10/28/19 20:39 EKG 12 Lead [EKG Documentation Completion] [RC] STAT 10/28/19 20:45 Sodium Chloride 0.9% [Normal Saline] 1,000 ml IV ASDIRECTED 10/28/19 20:50 CULTURE BLOOD [BC] Stat 10/28/19 20:56 CULTURE BLOOD [BC] Stat 10/28/19 21:00 CORONAVIRUS COVID-19 PCR PHL Stat
[2019-10-28] MEDS ORDERED: Diltiazem 50 MG/10 ML SDV IVPUSH ONE (21:14)
[2019-10-29] MEDS ORDERED: oxyCODONE 5 MG Tab PO PRN (00:03)
[2019-10-29] MEDS ORDERED: Morphine 2 MG/ML SYRINGE IVPUSH PRN (00:03)
[2019-10-29] MEDS ORDERED: Ondansetron 4 MG/2 ML SDV IV PRN (00:03)
[2019-10-29] MEDS ORDERED: Pantoprazole 40 MG Tab.CR PO PRN (00:07)
--- NOTE | 2019-10-29 00:11 | PCM.HP.2 ---
H&P History of Present Illness - General Date of Service: 10/29/19 Admit Problem/Dx: Admission Diagnosis/Problem Admission Diagnosis/Problem Atrial fibrillation - History of Present Illness Initial Comments - Free Text/Narative: 79-year-old female with history of gallbladder cancer diagnosed in August has had worsening nausea, chills, and developed vomiting this evening. She has had a decrease in appetite for last few days and may have had a low-grade fever. She complains of a dry nonproductive cough. She denies exposure to anyone with the coronavirus and has been home for the last 2 weeks. Patient has a history of atrial fibrillation she states that she often has an elevated heart rate. She denies any shortness of breath, diarrhea, abdominal pain. In the emergency room oxygen saturations were in the low 90s and there was concern for COVID-19. Patient's blood work had some consistencies with COVID- 19 including lymphopenia, ferritin of 9419, lactate dehydrogenase 588, C- reactive protein 4.0. Chest x-ray showed no infiltrates but enlarged heart. When she was brought to the ICU secondary to A. fib with RVR her rate was in the 120s to 140s. Oxygen saturations at that time were 92 to 94%. She was started on a Cardizem drip. Right Upper Abdomen Pain Score (Numeric/FACES): 2 - Related Data Allergies/Adverse Reactions: Allergies Allergy/AdvReac Type Severity Reaction Status Date / Time rosuvastatin [From Crestor] Allergy Muscle Verified 10/29/19 00:43 Aches Home Medications: Home Meds Apixaban [Eliquis] 5 mg PO BID 11/02/17 [History] Levothyroxine 25 mcg PO DAILY 11/02/17 [History] Losartan [Cozaar] 100 mg PO DAILY 11/02/17 [History] Metoprolol Succinate 200 mg PO DAILY 11/02/17 [History] amLODIPine Besylate [Amlodipine Besylate] 5 mg PO DAILY 11/02/17 [History] Ascorbic Acid [Vitamin C] 250 mg PO DAILY 08/23/19 [History] Cholecalciferol (Vitamin D3) [Vitamin D3] 1,000 unit PO DAILY 08/23/19 [History] Cranberry Fruit Extract [Cranberry] 300 mg PO DAILY 08/23/19 [History] Docusate Sodium [Colace] 500 mg PO TID 08/23/19 [History] Ferrous Sulfate [Iron] 325 mg PO DAILY 08/23/19 [History] Folic Acid/Vitamin B Comp W-C [Super B-Complex Folic-Vit C Tb] 400 mcg PO DAILY 08/23/19 [History] Glucosam/Deep-Col.Cplx/D3/C/Mn [Wgibbowljwe-Ygnkyqbunev-I2] 1 tab PO DAILY 08/23 [History] Omeprazole Magnesium [Prilosec Otc] 20 mg PO DAILY PRN 08/23/19 [History] polyethylene glycoL 3350 [MiraLAX] 17 gm PO BID 08/23/19 [History] Hydrocodone/Acetaminophen [[place] 10-325 Tablet] 1 tab PO Q6HR PRN 10/28/19 [ History] Morphine Sulfate [Morphine Sulfate ER] 15 mg PO BID 10/28/19 [History] Sennosides [Senokot] 8.6 mg PO ASDIRECTED PRN 10/28/19 [History] Past Medical History HEENT History: Reports: Cataract, Impaired Vision Other HEENT History: wears glasses Cardiovascular History: Reports: Afib, CAD, High Cholesterol, Hypertension Respiratory History: Reports: None Gastrointestinal History: Reports: Cholelithiasis, Colon Polyp, Diverticulosis, GERD Other Gastrointestinal History: schatzski's ring, gallbladder cancer Genitourinary History: Reports: None BULKER History: Reports: None Musculoskeletal History: Reports: None Neurological History: Reports: None Psychiatric History: Reports: None Endocrine/Metabolic History: Reports: Hypothyroidism Hematologic History: Reports: Anemia, Anticoagulation Therapy Immunologic History: Reports: None Oncologic (Cancer) History: Reports: None Dermatologic History: Reports: None - Past Surgical History Head Surgeries/Procedures: Reports: None HEENT Surgical History: Reports: None, Cataract Surgery Cardiovascular Surgical History: Reports: None Respiratory Surgical History: Reports: None GI Surgical History: Reports: None, Appendectomy, Colonoscopy, EGD Female Surgical History: Reports: Hysterectomy Endocrine Surgical History: Reports: None Neurological Surgical History: Reports: None Musculoskeletal Surgical History: Reports: None Oncologic Surgical History: Reports: None Dermatological Surgical History: Reports: None Social & Family History - Tobacco Use Smoking Status *Q: Never Smoker Second Hand Smoke Exposure: No - Caffeine Use Caffeine Use: Reports: None - Recreational Drug Use Recreational Drug Use: No H&P Review of Systems - Review of Systems: Review Of Systems: Comprehensive ROS is negative, except as noted in HPI. Exam - Exam Exam: See Below - Vital Signs Vital Signs: Last Vital Signs Temp 98.0 F 10/28/19 23:45 Pulse 127 H 10/28/19 23:45 Resp 18 10/28/19 23:45 BP 121/81 10/28/19 23:45 Pulse Ox 92 L 10/28/19 23:45 Weight: 132 lb - Exam Quality Assessment: No: Supplemental Oxygen General: Alert, Oriented, 4 HEENT: Conjunctiva Clear, Hearing Intact, Mucosa Moist & [place] Neck: Supple, Trachea Midline, 2 Lungs: Normal Respiratory Effort, Crackles Cardiovascular: Irregular Rhythm (Irregular rate) GI/Abdominal Exam: Normal Bowel Sounds, Soft, Non-Tender, No Organomegaly, No Distention, No Abnormal Bruit, No Mass Extremities: Normal Inspection, Normal Range of Motion, Non-Tender, No Pedal Edema, Normal Capillary Refill Skin: Warm, Dry, Intact Neuro Extensive - Mental Status: Alert, Oriented x3, Normal Mood/Affect, Normal Cognition Psychiatric: Alert, Normal Affect, Normal Mood - Patient Data Lab Results Last 24 hrs: Laboratory Results - last 24 hr 10/28/19 10/28/19 10/28/19 Range/Units 20:56 20:56 20:56 WBC 7.76 (3.98-10.04) K/mm3 RBC 4.25 (3.98-5.22) M/mm3 Hgb 13.0 (11.2-15.7) gm/dl Hct 38.6 (34.1-44.9) % MCV 90.8 (79.4-94.8) fl MCH 30.6 (25.6-32.2) pg MCHC 33.7 (32.2-35.5) g/dl RDW Std Deviation 44.4 (36.4-46.3) fL Plt Count 314 (182-369) K/mm3 MPV 10.4 (9.4-12.3) fl Neut % (Auto) 86.6 H (34.0-71.1) % Lymph % (Auto) 6.7 L (19.3-51.7) % Isabela % (Auto) 5.9 (4.7-12.5) % Eos % (Auto) 0.4 L (0.7-5.8) Baso % (Auto) 0.1 (0.1-1.2) % Neut # (Auto) 6.72 H (1.56-6.13) K/mm3 Lymph # (Auto) 0.52 L (1.18-3.74) K/mm3 Isabel[place] # (Auto) 0.46 H (0.24-0.36) K/mm3 Eos # (Auto) 0.03 L (0.04-0.36) K/mm3 Baso # (Auto) 0.01 (0.01-0.08) K/mm3 Manual Slide Review Abnormal smear D-Dimer, Quantitative (0.19-0.50) mg/L Sodium 133 L (136-145) mEq/L Potassium 4.1 (3.5-5.1) mEq/L Chloride 97 L (98-107) mEq/L Carbon Dioxide 24 (21-32) mEq/L Anion Gap 16.1 H (5-15) BUN 12 (7-18) mg/dL Creatinine 0.8 (0.55-1.02) mg/dL Est Cr Clr Drug Dosing 49.24 mL/min Estimated GFR (MDRD) > 60 (>60) mL/min BUN/Creatinine Ratio 15.0 (14-18) Glucose 133 H (83-115) mg/dL Lactic Acid 1.6 (0.4-2.0) mmol/L Calcium 9.3 (8.5-10.1) mg/dL Ferritin (8-252) ng/ml Total Bilirubin 2.5 H (0.2-1.0) mg/dL AST 878 H (15-37) U/L ALT 692 H (14-59) U/L Alkaline Phosphatase 661 H (46-116) U/L Lactate Dehydrogenase (81-234) U/L C-Reactive Protein (<1.0) mg/dL Total Protein 6.9 (6.4-8.2) g/dl Albumin 3.2 L (3.4-5.0) g/dl Globulin 3.7 gm/dL Albumin/Globulin Ratio 0.9 L (1-2) 10/28/19 10/28/19 10/28/19 Range/Units 20:56 20:56 20:56 WBC (3.98-10.04) K/mm3 RBC (3.98-5.22) M/mm3 Hgb (11.2-15.7) gm/dl Hct (34.1-44.9) % MCV (79.4-94.8) fl MCH (25.6-32.2) pg MCHC (32.2-35.5) g/dl RDW Std Deviation (36.4-46.3) fL Plt Count (182-369) K/mm3 MPV (9.4-12.3) fl Neut % (Auto) (34.0-71.1) % Lymph % (Auto) (19.3-51.7) % Isabel[place] % (Auto) (4.7-12.5) % Eos % (Auto) (0.7-5.8) Baso % (Auto) (0.1-1.2) % Neut # (Auto) (1.56-6.13) K/mm3 Lymph # (Auto) (1.18-3.74) K/mm3 Isabel[place] # (Auto) (0.24-0.36) K/mm3 Eos # (Auto) (0.04-0.36) K/mm3 Baso # (Auto) (0.01-0.08) K/mm3 Manual Slide Review D-Dimer, Quantitative 1.42 H (0.19-0.50) mg/L Sodium (136-145) mEq/L Potassium (3.5-5.1) mEq/L Chloride (98-107) mEq/L Carbon Dioxide (21-32) mEq/L Anion Gap (5-15) BUN (7-18) mg/dL Creatinine (0.55-1.02) mg/dL Est Cr Clr Drug Dosing mL/min Estimated GFR (MDRD) (>60) mL/min BUN/Creatinine Ratio (14-18) Glucose (83-115) mg/dL Lactic Acid (0.4-2.0) mmol/L Calcium (8.5-10.1) mg/dL Ferritin 9419 H (8-252) ng/ml Total Bilirubin (0.2-1.0) mg/dL AST (15-37) U/L ALT (14-59) U/L Alkaline Phosphatase (46-116) U/L Lactate Dehydrogenase 588 H (81-234) U/L C-Reactive Protein 4.0 H* (<1.0) mg/dL Total Protein (6.4-8.2) g/dl Albumin (3.4-5.0) g/dl Globulin gm/dL Albumin/Globulin Ratio (1-2) Result Diagrams: 10/28/19 20:56 10/28/19 20:56 Sepsis Event Note - Evaluation Sepsis Screening Result: No Definite Risk - Focused Exam Vital Signs: Vital Signs Temp Pulse Resp BP Pulse Ox 10/28/19 23:45 98.0 F 127 H 18 121/81 92 L 10/28/19 21:51 115 H 18 125/63 91 L 10/28/19 20:06 99.5 F 120 H 20 138/85 90 L Date Exam was Performed: 10/29/19 Time Exam was Performed: 14:15 Problem List Initiated/Reviewed/Updated: Yes Orders Last 24hrs: Active Orders 24 hr Category Date Time Status Patient Status [ADT] Routine ADT 10/28/19 23:52 Active EKG 12 Lead [EKG Documentation Completion] [RC] STAT Care 10/28/19 20:39 Active Oxygen Therapy [RC] PRN Care 10/29/19 00:05 Ordered Up ad Melva [RC] ASDIRECTED Care 10/29/19 00:03 Ordered VTE/DVT Education [RC] PER UNIT ROUTINE Care 10/29/19 00:05 Ordered Vital Signs [RC] Q4H Care 10/29/19 00:05 Ordered Regular Diet [DIET] Diet 10/29/19 Breakfast Ordered CXR [Chest 1V Frontal] [CR] Stat Exams 10/28/19 20:19 Taken CORONAVIRUS COVID-19 PCR PHL Stat Lab 10/28/19 21:00 Received CULTURE BLOOD [BC] Stat Lab 10/28/19 20:50 Received CULTURE BLOOD [BC] Stat Lab 10/28/19 20:56 Received UA W/MICROSCOPIC [URIN] Stat Lab 10/28/19 20:18 Ordered Apixaban [Eliquis] Med 10/29/19 09:00 Ordered 5 mg PO BID Diltiazem 100 MG in Normal Saline @ 5 MG/HR(100ml) Med 10/29/19 00:15 Ordered Diltiazem [Cardizem] 100 mg Sodium Chloride 0.9% [Normal Saline] 100 ml IV TITRATE Levothyroxine Med 10/29/19 09:00 Ordered 25 mcg PO DAILY Metoprolol Succinate [Metoprolol Succinate] Med 10/29/19 09:00 Ordered 200 mg PO DAILY Morphine Med 10/29/19 00:03 Ordered 2 mg IVPUSH Q2H PRN Morphine [MS Contin] Med 10/29/19 00:15 Ordered 15 mg PO Q12H Omeprazole Magnesium [Prilosec Otc] Med 10/29/19 00:07 Ordered 20 mg PO DAILY PRN Ondansetron [Zofran] Med 10/29/19 00:03 Ordered 4 mg IV Q4H PRN Sennosides [Senna] Med 10/29/19 00:07 Ordered 8.6 mg PO ASDIRECTED PRN Sodium Chloride 0.9% [Normal Saline] 1,000 ml Med 10/28/19 20:45 Active IV ASDIRECTED oxyCODONE Med 10/29/19 00:03 Ordered 5 mg PO Q4H PRN polyethylene glycoL 3350 [MiraLAX] Med 10/29/19 09:00 Ordered 17 gm PO BID Blood Culture x2 Reflex Set [OM.PC] Stat Oth 10/28/19 20:38 Ordered Resuscitation Status Routine Resus Stat 10/29/19 00:03 Ordered Medication Orders Apixaban (Eliquis) 5 mg PO BID [facility] Sodium Chloride (Normal Saline) 1,000 mls @ 500 mls/hr IV ASDIRECTED [facility] Last Admin: 10/28/19 21:29 Dose: 500 mls/hr Diltiazem HCl 100 mg/ Sodium (Chloride) 100 mls @ 5 mls/hr IV TITRATE ESTHER; Protocol Levothyroxine Sodium (Levothyroxine) 25 mcg PO DAILY [facility]HER Morphine Sulfate (Morphine) 2 mg IVPUSH Q2H PRN PRN Reason: Pain (severe 7-10) Stop: 10/30/19 00:06 Morphine Sulfate (Ms Contin) 15 mg PO Q12H ESTHER Non-Formulary Medication (Metoprolol Succinate [Metoprolol Succinate]) 200 mg PO DAILY [facility] Non-Formulary Medication (Omeprazole Magnesium [Prilosec Otc]) 20 mg PO DAILY PRN PRN Reason: gastric reflux Ondansetron HCl (Zofran) 4 mg IV Q4H PRN PRN Reason: Nausea/Vomiting Oxycodone HCl (Oxycodone) 5 mg PO Q4H PRN PRN Reason: Pain (moderate 4-6) Polyethylene Glycol (Miralax) 17 gm PO BID ESTHER Senna (Senna) 8.6 mg PO ASDIRECTED PRN PRN Reason: Constipation Assessment/Plan Comment:: Assessment 79-year-old female with history of gallbladder cancer presents to the emergency room with nausea, vomiting, and dehydration. * Diagnosed with gallbladder cancer in August * Patient is not pursuing treatment * Elevated liver enzymes: AST 878, ALT 692, alkaline phosphatase 661, total bilirubin 2.5, albumin 3.2 * Nausea and vomiting improved with Zofran in the emergency room * Given a liter bolus in the emergency room which improved her dehydration. Atrial fibrillation with RVR, with history of hypertension, coronary artery disease, hyperlipidemia * Heart rates 120-140. * Cardizem drip started * Home medications for hypertension and atrial fibrillation: Metoprolol succinate 200 mg in the mornings, amlodipine 5 mg daily, losartan 100 mg daily * Eliquis for stroke prevention * Hemodynamically stable * History of hypothyroidism on Levoxyl 25 mcg. Rule out COVID-19 * Cover testing done in the emergency department * Ferritin 9419, lactate dehydrogenase 588, C-reactive protein 4.0, d-dimer 1.42 * Placed in strict isolation Plan * Admit to ICU * Cardizem drip * Strict isolation until COVID-19 results return * Hold amlodipine and losartan * Continue metoprolol in the morning * Check TSH * VTE prophylaxis with Eliquis * CODE STATUS: DNR/DNI * Length of stay likely 2 to 3 days - Mortality Measure Prognosis:: Good
[2019-10-29] MEDS ORDERED: Diltiazem 100 MG in Sodium Chloride 0.9% 100 ML IV SCH (00:15)
[2019-10-29] MEDS: Morphine 15 MG Tab.ER PO SCH ×3 (00:29→20:00)
[2019-10-29] MEDS: Levothyroxine 25 MCG Tab PO SCH (05:07)
[2019-10-29] MEDS: Apixaban 5 MG Tab PO SCH ×2 (09:29→20:00)
[2019-10-29] MEDS: Sennosides 8.6 MG Tab PO SCH ×2 (09:29→20:00)
[2019-10-29] MEDS: Metoprolol Succinate 50 MG Tab.ER PO SCH (09:29)
[2019-10-29] MEDS: Polyethylene Glycol 3350 Powder 17 GM Packet PO SCH ×2 (09:35→20:00)
[2019-10-29] MEDS ORDERED: Lactated Ringers 500 ML IV ONE (10:26)
[2019-10-29] MEDS ORDERED: Diltiazem IR 30 MG Tab PO SCH (14:15)
[2019-10-29] MEDS: Diltiazem IR 30 MG Tab PO SCH (21:08)
[2019-10-30] MEDS: Diltiazem IR 30 MG Tab PO SCH ×3 (02:50→08:22)
[2019-10-30] MEDS: Levothyroxine 25 MCG Tab PO SCH (06:20)
[2019-10-30] MEDS: Polyethylene Glycol 3350 Powder 17 GM Packet PO SCH ×2 (08:21→20:57)
[2019-10-30] MEDS: Morphine 15 MG Tab.ER PO SCH ×2 (08:21→20:57)
[2019-10-30] MEDS: Sennosides 8.6 MG Tab PO SCH ×2 (08:22→20:57)
[2019-10-30] MEDS: Apixaban 5 MG Tab PO SCH ×2 (08:22→20:57)
[2019-10-30] MEDS: Metoprolol Succinate 50 MG Tab.ER PO SCH (08:23)
--- NOTE | 2019-10-30 10:49 | CR ---
Chest: Portable view of the chest was obtained. Comparison: No prior chest imaging is available. Heart is felt to be mildly enlarged. Mild tortuosity of the thoracic aorta is seen. Lungs are clear with no acute parenchymal change. Bony structures are grossly intact. Impression: 1. Heart is felt to be mildly enlarged. 2. Nothing acute is otherwise seen on portable chest x-ray. Diagnostic code #2 Study was dictated in MDT
--- NOTE | 2019-10-30 13:21 | PCM.PN ---
- General Info Date of Service: 10/30/19 Admission Dx/Problem (Free Text): Admission Diagnosis/Problem Admission Diagnosis/Problem Atrial fibrillation Subjective Update: Patient is doing well. She has no nausea or vomiting. She did have a bowel movement. Appetite is still poor. Increasing Cardizem from 30mg to 45 mg every 6 has brought her heart rate into the 60s to 80s Functional Status: Reports: Pain Controlled - Review of Systems General: Reports: No Symptoms HEENT: Reports: No Symptoms Pulmonary: Reports: No Symptoms Cardiovascular: Reports: No Symptoms Gastrointestinal: Reports: No Symptoms, Decreased Appetite - Patient Data Vitals - Most Recent: Last Vital Signs Temp 97.7 F 10/30/19 08:00 Pulse 70 10/30/19 12:00 Resp 20 10/30/19 12:00 BP 123/72 10/30/19 12:01 Pulse Ox 94 L 10/30/19 12:20 Weight - Most Recent: 143 lb 4.807 oz I&O - Last 24 Hours: Intake & Output 10/29/19 10/30/19 10/30/19 22:59 06:59 14:59 Intake Total 750 100 240 Balance 750 100 240 Lab Results Last 24 Hours: Laboratory Results - last 24 hr 10/30/19 10/30/19 Range/Units 06:15 06:15 WBC 8.25 (3.98-10.04) K/mm3 RBC 3.64 L (3.98-5.22) M/mm3 Hgb 10.6 L D (11.2-15.7) gm/dl Hct 33.5 L (34.1-44.9) % MCV 92.0 (79.4-94.8) fl MCH 29.1 (25.6-32.2) pg MCHC 31.6 L (32.2-35.5) g/dl RDW Std Deviation 45.2 (36.4-46.3) fL Plt Count 261 (182-369) K/mm3 MPV 10.4 (9.4-12.3) fl Neut % (Auto) 67.1 (34.0-71.1) % Lymph % (Auto) 18.2 L (19.3-51.7) % [place] % (Auto) 11.9 (4.7-12.5) % Eos % (Auto) 2.2 (0.7-5.8) Baso % (Auto) 0.2 (0.1-1.2) % Neut # (Auto) 5.54 (1.56-6.13) K/mm3 Lymph # (Auto) 1.50 (1.18-3.74) K/mm3 [place] # (Auto) 0.98 H (0.24-0.36) K/mm3 Eos # (Auto) 0.18 (0.04-0.36) K/mm3 Baso # (Auto) 0.02 (0.01-0.08) K/mm3 Sodium 134 L (136-145) mEq/L Potassium 3.9 (3.5-5.1) mEq/L Chloride 99 (98-107) mEq/L Carbon Dioxide 25 (21-32) mEq/L Anion Gap 13.9 (5-15) BUN 8 (7-18) mg/dL Creatinine 0.6 (0.55-1.02) mg/dL Est Cr Clr Drug Dosing 65.65 mL/min Estimated GFR (MDRD) > 60 (>60) mL/min BUN/Creatinine Ratio 13.3 L (14-18) Glucose 99 (83-115) mg/dL Calcium 8.5 (8.5-10.1) mg/dL Magnesium 1.9 (1.8-2.4) mg/dl Total Bilirubin 2.2 H (0.2-1.0) mg/dL AST 197 H (15-37) U/L ALT 337 H (14-59) U/L Alkaline Phosphatase 472 H (46-116) U/L C-Reactive Protein 11.8 H* (<1.0) mg/dL Total Protein 6.0 L (6.4-8.2) g/dl Albumin 2.5 L (3.4-5.0) g/dl Globulin 3.5 gm/dL Albumin/Globulin Ratio 0.7 L (1-2) TSH 3rd Generation 2.496 (0.358-3.74) uIU/mL Leeroy Results Last 24 Hours: Microbiology 10/28/19 20:50 Aerobic Blood Culture - Preliminary Blood - Venous NO GROWTH AFTER 1 DAY Anaerobic Blood Culture - Preliminary NO GROWTH AFTER 1 DAY 10/28/19 20:56 Aerobic Blood Culture - Preliminary Blood - Venous - Lab Draw NO GROWTH AFTER 1 DAY Anaerobic Blood Culture - Preliminary NO GROWTH AFTER 1 DAY Med Orders - Current: Current Medications Apixaban (Eliquis) 5 mg PO BID [facility] Last Admin: 10/30/19 08:22 Dose: 5 mg Diltiazem HCl (Cardizem Cd) 180 mg PO BEDTIME [facility] Sodium Chloride (Normal Saline) 1,000 mls @ 500 mls/hr IV ASDIRECTED [facility] Last Admin: 10/28/19 21:29 Dose: 500 mls/hr Diltiazem HCl 100 mg/ Sodium (Chloride) 100 mls @ 5 mls/hr IV TITRATE [facility]; Protocol Last Titration: 10/29/19 04:33 Dose: 5 mg/hr, 5 mls/hr Levothyroxine Sodium (Levothyroxine) 25 mcg PO ACBREAKFAST [facility] Last Admin: 10/30/19 06:20 Dose: 25 mcg Metoprolol Succinate (Toprol Xl) 200 mg PO DAILY [facility] Last Admin: 10/30/19 08:23 Dose: 200 mg Morphine Sulfate (Ms Contin) 15 mg PO BID [facility] Last Admin: 10/30/19 08:21 Dose: 15 mg Ondansetron HCl (Zofran) 4 mg IV Q4H PRN PRN Reason: Nausea/Vomiting Last Admin: 10/29/19 14:04 Dose: 4 mg Oxycodone HCl (Oxycodone) 5 mg PO Q4H PRN PRN Reason: Pain (moderate 4-6) Pantoprazole Sodium (Protonix) 40 mg PO DAILY PRN PRN Reason: gastric reflux Polyethylene Glycol (Miralax) 17 gm PO BID [facility] Last Admin: 10/30/19 08:21 Dose: 17 gm Senna (Senna) 8.6 mg PO BID [facility] Last Admin: 10/30/19 08:22 Dose: 8.6 mg Discontinued Medications Diltiazem HCl (Cardizem) 10 mg IVPUSH ONETIME ONE Stop: 10/28/19 21:15 Last Admin: 10/28/19 22:48 Dose: Not Given Diltiazem HCl (Cardizem) 30 mg PO Q6HR [facility] Last Admin: 10/29/19 14:28 Dose: 30 mg Diltiazem HCl (Cardizem) 45 mg PO Q6HR [facility] Last Admin: 10/30/19 02:50 Dose: Not Given Diltiazem HCl (Cardizem) 45 mg PO Q6H [facility] Last Admin: 10/30/19 08:22 Dose: 45 mg Lactated Ringer's (Ringers, Lactated) 500 mls @ 999 mls/hr IV .BOLUS ONE Stop: 10/29/19 10:56 Last Admin: 10/29/19 10:40 Dose: 999 mls/hr Morphine Sulfate (Morphine) 2 mg IVPUSH Q2H PRN PRN Reason: Pain (severe 7-10) Stop: 10/30/19 00:06 Last Admin: 10/29/19 00:26 Dose: 2 mg Ondansetron HCl (Zofran) 4 mg IVPUSH ONETIME ONE Stop: 10/28/19 20:40 Last Admin: 10/28/19 21:29 Dose: 4 mg - Exam Quality Assessment: No: Supplemental Oxygen General: Alert, Oriented HEENT: Pupils Equal, Mucous Membr. Moist/[place] Neck: Supple Lungs: Clear to Auscultation, Normal Respiratory Effort Cardiovascular: Irregular Rhythm (Regular rate) GI/Abdominal Exam: Normal Bowel Sounds, Soft, Non-Tender, No Distention Extremities: Non-Tender, No Pedal Edema Skin: Warm, Dry, Intact Psy/Mental Status: Alert, Normal Affect, Normal Mood Sepsis Event Note - Evaluation Sepsis Screening Result: No Definite Risk - Focused Exam Vital Signs: Vital Signs Temp Pulse Pulse Resp BP BP Pulse Ox 10/30/19 12:20 94 L 10/30/19 12:01 123/72 95 10/30/19 12:00 70 20 123/72 93 L 10/30/19 11:45 87 L 10/30/19 11:20 93 L 10/30/19 11:01 93 L 10/30/19 11:00 112/56 L 93 L 10/30/19 10:59 93 L 10/30/19 10:40 93 L 10/30/19 10:20 94 L 10/30/19 10:00 94 L 10/30/19 09:40 90 L 10/30/19 09:20 93 L 10/30/19 09:03 132/99 H 94 L 10/30/19 09:02 96 10/30/19 09:00 95 10/30/19 08:40 94 L 10/30/19 08:23 102 H 142/66 H 10/30/19 08:21 142/66 H 96 10/30/19 08:20 96 10/30/19 08:00 97.7 F 93 18 134/103 H 132/99 H 94 L 10/30/19 07:00 118/63 10/30/19 06:24 82 L 10/30/19 06:22 83 L 10/30/19 06:01 92 L 10/30/19 06:00 97/55 L 93 L 10/30/19 05:59 92 L 10/30/19 05:40 95 10/30/19 05:20 92 L 10/30/19 05:01 94 L 10/30/19 05:00 109/68 94 L 10/30/19 04:59 91 L 10/30/19 04:40 91 L 10/30/19 04:20 92 L 10/30/19 04:02 92 L 10/30/19 04:01 97/64 93 L 10/30/19 04:00 97.4 F 90 16 97/64 93 L 10/30/19 03:59 93 L 10/30/19 03:40 92 L 10/30/19 03:20 92 L 10/30/19 03:01 118/80 95 10/30/19 03:00 94 L 10/30/19 02:40 85 L 10/30/19 02:20 92 L 10/30/19 02:01 100/52 L 91 L 10/30/19 02:00 82 L 10/30/19 01:40 91 L Date Exam was Performed: 10/30/19 Time Exam was Performed: 15:16 - Problem List Review Problem List Initiated/Reviewed/Updated: Yes - My Orders Last 24 Hours: My Active Orders 10/30/19 08:02 Admission Status [Patient Status] [ADT] Routine 10/30/19 21:00 Diltiazem [Cardizem CD] 180 mg PO BEDTIME 10/31/19 05:11 C-REACTIVE PROTEIN [CHEM] AM CBC WITH AUTO DIFF [HEME] AM CMP [COMPREHENSIVE METABOLIC PN,CMP] [CHEM] AM MAGNESIUM [CHEM] AM - Plan Plan:: Assessment Day of admission 79-year-old female with history of gallbladder cancer presents to the emergency room with nausea, vomiting, and dehydration. * Diagnosed with gallbladder cancer in August * Patient is not pursuing treatment * Elevated liver enzymes: AST 878, ALT 692, alkaline phosphatase 661, total bilirubin 2.5, albumin 3.2 * Nausea and vomiting improved with Zofran in the emergency room * Given a liter bolus in the emergency room which improved her dehydration. Atrial fibrillation with RVR, with history of hypertension, coronary artery disease, hyperlipidemia * Heart rates 120-140. * Cardizem drip started * Home medications for hypertension and atrial fibrillation: Metoprolol succinate 200 mg in the mornings, amlodipine 5 mg daily, losartan 100 mg daily * Eliquis for stroke prevention * Hemodynamically stable * History of hypothyroidism on Levoxyl 25 mcg. Rule out COVID-19 * COVID-19 testing done in the emergency department * Ferritin 9419, lactate dehydrogenase 588, C-reactive protein 4.0, d-dimer 1.42 * Placed in strict isolation Day 1 * Coronavirus still pending * On p.o. Cardizem and metoprolol * Heart rate in the 60s to 80s * Liver function has improved: Total bilirubin 2.2, albumin 2.5, AST 197, ALT 337, alkaline phosphatase 472 * Patient afebrile, no respiratory symptoms, and no hypoxemia Plan * Admit to ICU * Long-acting Cardizem CD 180 mg in the evening and metoprolol succinate 200 mg in the morning * Strict isolation until COVID-19 results return * Hold amlodipine and losartan * Continue metoprolol in the morning * Check TSH * VTE prophylaxis with Eliquis * CODE STATUS: DNR/DNI * Length of stay likely discharge tomorrow
[2019-10-30] MEDS ORDERED: Diltiazem IR 30 MG Tab PO ONE (15:57)
[2019-10-30] MEDS ORDERED: Diltiazem 180 MG Cap.CD PO SCH (21:00)
[2019-10-31] MEDS: Levothyroxine 25 MCG Tab PO SCH (06:11)
[2019-10-31] MEDS: Metoprolol Succinate 50 MG Tab.ER PO SCH (09:16)
[2019-10-31] MEDS: Apixaban 5 MG Tab PO SCH (09:17)
[2019-10-31] MEDS: Polyethylene Glycol 3350 Powder 17 GM Packet PO SCH (09:17)
[2019-10-31] MEDS: Morphine 15 MG Tab.ER PO SCH (09:17)
[2019-10-31] MEDS: Sennosides 8.6 MG Tab PO SCH (09:17)
[2019-10-31] MEDS ORDERED: Potassium Chloride 20 MEQ Tab.ER PO ONE (11:12)
--- NOTE | 2019-10-31 12:15 | PCM.DCSUM1 ---
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 She has had a decrease in appetite for last few days and may have had a low-grade fever. She complains of a dry nonproductive cough. She denies exposure to anyone with the coronavirus and has been home for the last 2 weeks. Patient has a history of atrial fibrillation she states that she often has an elevated heart rate. She denies any shortness of breath, diarrhea, abdominal pain. In the emergency room oxygen saturations were in the low 90s and there was concern for COVID-19. Patient's blood work had some consistencies with COVID- 19 including lymphopenia, ferritin of 9419, lactate dehydrogenase 588, C- reactive protein 4.0. Chest x-ray showed no infiltrates but enlarged heart. When she was brought to the ICU secondary to A. fib with RVR her rate was in the 120s to 140s. Oxygen saturations at that time were 92 to 94%. She was started on a Cardizem drip. Brief History: Assessment. 79-year-old female with history of gallbladder cancer presents to the emergency room with nausea, vomiting, and dehydration. Diagnosed with gallbladder cancer in August. Patient is not pursuing treatment. Elevated liver enzymes: AST 878, ALT 692, alkaline phosphatase 661, total bilirubin 2.5, albumin 3.2. Nausea and vomiting improved with Zofran in the emergency room. Given a liter bolus in the emergency room which improved her dehydration. Atrial fibrillation with RVR, with history of hypertension, coronary artery disease, hyperlipidemia. Heart rates 120-140. Cardizem drip started. Home medications for hypertension and atrial fibrillation: Metoprolol succinate 200 mg in the mornings, amlodipine 5 mg daily, losartan 100 mg daily. Eliquis for stroke prevention. Hemodynamically stable. History of hypothyroidism on Levoxyl 25 mcg. Rule out COVID-19. Cover testing done in the emergency department. Ferritin 9419, lactate dehydrogenase 588, C-reactive protein 4.0, d-dimer 1.42. Placed in strict isolation. Plan. Admit to ICU. Cardizem drip. Strict isolation until COVID-19 results return. Hold amlodipine and losartan. Continue metoprolol in the morning. Check TSH. VTE prophylaxis with Eliquis. CODE STATUS: DNR/DNI. Length of stay likely 2 to 3 days Diagnosis: Stroke: No - Discharge Data Discharge Date: 10/31/19 Discharge Disposition: Home, Self-Care 01 Condition: Good - Referral to Home Health Primary Care Physician: Jani Saldivar MD - Discharge Diagnosis/Problem(s) (1) Atrial fibrillation with rapid ventricular response SNOMED Code(s): 110324958594636 ICD Code: I48.91 - UNSPECIFIED ATRIAL FIBRILLATION Status: Acute Current Visit: Yes (2) Dehydration SNOMED Code(s): 45726252 ICD Code: E86.0 - DEHYDRATION Status: Acute Current Visit: Yes (3) Gallbladder cancer, carcinoma SNOMED Code(s): 761190686 ICD Code: C23 - MALIGNANT NEOPLASM OF GALLBLADDER Status: Acute Current Visit: Yes (4) Suspected COVID-19 virus infection SNOMED Code(s): 951931663 ICD Code: R68.89 - OTHER GENERAL SYMPTOMS AND SIGNS Status: Acute Current Visit: Yes - Patient Summary/Data Hospital Course: Assessment Day of admission 79-year-old female with history of gallbladder cancer presents to the emergency room with nausea, vomiting, and dehydration. * Diagnosed with gallbladder cancer in August * Patient is not pursuing treatment * Elevated liver enzymes: AST 878, ALT 692, alkaline phosphatase 661, total bilirubin 2.5, albumin 3.2 * Nausea and vomiting improved with Zofran in the emergency room * Given a liter bolus in the emergency room which improved her dehydration. Atrial fibrillation with RVR, with history of hypertension, coronary artery disease, hyperlipidemia * Heart rates 120-140. * Cardizem drip started * Home medications for hypertension and atrial fibrillation: Metoprolol succinate 200 mg in the mornings, amlodipine 5 mg daily, losartan 100 mg daily * Eliquis for stroke prevention * Hemodynamically stable * History of hypothyroidism on Levoxyl 25 mcg. Rule out COVID-19 * COVID-19 testing done in the emergency department * Ferritin 9419, lactate dehydrogenase 588, C-reactive protein 4.0, d-dimer 1.42 * Placed in strict isolation Day 1 * Coronavirus still pending * On p.o. Cardizem and metoprolol * Switch to Long-acting Cardizem CD 180 mg in the evening and metoprolol succinate 200 mg in the morning * Heart rate in the 60s to 80s * Liver function has improved: Total bilirubin 2.2, albumin 2.5, AST 197, ALT 337, alkaline phosphatase 472 * TSH 2.4 * Patient afebrile, no respiratory symptoms, and no hypoxemia Day of discharge * Patient's heart rate is now well controlled on metoprolol succinate 20 mg in the morning and Cardizem CD 180 mg at night. * Stop amlodipine and losartan. * Liver function continued to improve during hospitalization - Patient Instructions Diet: Heart Healthy Diet Activity: As Tolerated Driving: May Drive Today Showering/Bathing: May Shower - Discharge Plan *PRESCRIPTION DRUG MONITORING PROGRAM REVIEWED*: No *COPY OF PRESCRIPTION DRUG MONITORING REPORT IN PATIENT GA: No Prescriptions/Med Rec: Diltiazem HCl [Diltiazem 24Hr Cd] 180 mg PO BEDTIME #30 cap.er.24h Home Medications: Home Meds Apixaban [Eliquis] 5 mg PO BID 11/02/17 [History] Levothyroxine 25 mcg PO DAILY 11/02/17 [History] Metoprolol Succinate 200 mg PO DAILY 11/02/17 [History] Cholecalciferol (Vitamin D3) [Vitamin D3] 1,000 unit PO DAILY 08/23/19 [History] Cranberry Fruit Extract [Cranberry] 300 mg PO DAILY 08/23/19 [History] Docusate Sodium [Colace] 500 mg PO TID 08/23/19 [History] Ferrous Sulfate [Iron] 325 mg PO DAILY 08/23/19 [History] Folic Acid/Vitamin B Comp W-C [Super B-Complex Folic-Vit C Tb] 400 mcg PO DAILY 08/23/19 [History] Glucosam/Deep-Col.Cplx/D3/C/Mn [Xplahuvjxun-Gztgejtsnbk-Q0] 1 tab PO DAILY 08/23 [History] Omeprazole Magnesium [Prilosec Otc] 20 mg PO DAILY PRN 08/23/19 [History] polyethylene glycoL 3350 [MiraLAX] 17 gm PO BID 08/23/19 [History] Hydrocodone/Acetaminophen [Phillips 10-325 Tablet] 1 tab PO Q6HR PRN 10/28/19 [ History] Morphine Sulfate [Morphine Sulfate ER] 15 mg PO BID 10/28/19 [History] Sennosides [Senokot] 8.6 mg PO ASDIRECTED PRN 10/28/19 [History] Diltiazem HCl [Diltiazem 24Hr Cd] 180 mg PO BEDTIME #30 cap.er.24h 10/31/19 [Rx] Oxygen Therapy Mode: Room Air Forms: ED Department Discharge Referrals: Jani Saldivar MD [Primary Care Provider] - - Discharge Summary/Plan Comment DC Time >30 min.: Yes Discharge Summary/Plan Comment: Discharged home in good condition. Follow-up with primary care provider in 1 to 2 weeks. Start Cardizem CD 180 mg at night. Stop amlodipine and losartan until you are seen by your primary care provider. Continue metoprolol succinate 200 mg in the morning. - General Info Date of Service: 10/31/19 Admission Dx/Problem (Free Text: Admission Diagnosis/Problem Admission Diagnosis/Problem Atrial fibrillation Subjective Update: Patient states that she is doing well today. She has no shortness of breath, or chest pain. She does have some nausea and anorexia. - Review of Systems General: Reports: No Symptoms HEENT: Reports: No Symptoms Pulmonary: Reports: No Symptoms Cardiovascular: Reports: No Symptoms Gastrointestinal: Reports: No Symptoms Musculoskeletal: Reports: No Symptoms - Patient Data Vitals - Most Recent: Last Vital Signs Temp 97.5 F 10/31/19 09:00 Pulse 98 10/31/19 09:16 Resp 19 10/31/19 09:00 BP 131/72 10/31/19 09:16 Pulse Ox 95 10/31/19 09:00 Weight - Most Recent: 143 lb 4.807 oz I&O - Last 24 hours: Intake & Output 10/30/19 10/31/19 10/31/19 22:59 06:59 14:59 Intake Total 300 350 Balance 300 350 Lab Results - Last 24 hrs: Laboratory Results - last 24 hr 10/28/19 10/31/19 10/31/19 Range/Units 21:00 06:01 06:01 WBC 7.97 (3.98-10.04) K/mm3 RBC 3.97 L (3.98-5.22) M/mm3 Hgb 11.9 (11.2-15.7) gm/dl Hct 37.0 (34.1-44.9) % MCV 93.2 (79.4-94.8) fl MCH 30.0 (25.6-32.2) pg MCHC 32.2 (32.2-35.5) g/dl RDW Std Deviation 45.8 (36.4-46.3) fL Plt Count 296 (182-369) K/mm3 MPV 11.1 (9.4-12.3) fl Neut % (Auto) 57.7 (34.0-71.1) % Lymph % (Auto) 28.5 (19.3-51.7) % Peach % (Auto) 11.3 (4.7-12.5) % Eos % (Auto) 1.9 (0.7-5.8) Baso % (Auto) 0.1 (0.1-1.2) % Neut # (Auto) 4.60 (1.56-6.13) K/mm3 Lymph # (Auto) 2.27 (1.18-3.74) K/mm3 Peach # (Auto) 0.90 H (0.24-0.36) K/mm3 Eos # (Auto) 0.15 (0.04-0.36) K/mm3 Baso # (Auto) 0.01 (0.01-0.08) K/mm3 Sodium 136 (136-145) mEq/L Potassium 3.4 L (3.5-5.1) mEq/L Chloride 99 (98-107) mEq/L Carbon Dioxide 27 (21-32) mEq/L Anion Gap 13.4 (5-15) BUN 6 L (7-18) mg/dL Creatinine 0.8 (0.55-1.02) mg/dL Est Cr Clr Drug Dosing 49.24 mL/min Estimated GFR (MDRD) > 60 (>60) mL/min BUN/Creatinine Ratio 7.5 L (14-18) Glucose 97 (83-115) mg/dL Calcium 8.7 (8.5-10.1) mg/dL Magnesium 1.9 (1.8-2.4) mg/dl Total Bilirubin 1.5 H (0.2-1.0) mg/dL AST 113 H (15-37) U/L ALT 266 H (14-59) U/L Alkaline Phosphatase 484 H (46-116) U/L C-Reactive Protein 8.7 H* (<1.0) mg/dL Total Protein 6.8 (6.4-8.2) g/dl Albumin 2.8 L (3.4-5.0) g/dl Globulin 4.0 gm/dL Albumin/Globulin Ratio 0.7 L (1-2) COVID-19 PCR Not detected (NOT DETECT) [facility] Results - Last 24 hrs: Microbiology 10/28/19 20:50 Aerobic Blood Culture - Preliminary Blood - Venous NO GROWTH AFTER 2 DAYS Anaerobic Blood Culture - Preliminary NO GROWTH AFTER 2 DAYS 10/28/19 20:56 Aerobic Blood Culture - Preliminary Blood - Venous - Lab Draw NO GROWTH AFTER 2 DAYS Anaerobic Blood Culture - Preliminary NO GROWTH AFTER 2 DAYS Med Orders - Current: Current Medications Apixaban (Eliquis) 5 mg PO BID [facility] Last Admin: 10/31/19 09:17 Dose: 5 mg Diltiazem HCl (Cardizem Cd) 180 mg PO BEDTIME [facility] Last Admin: 10/30/19 20:58 Dose: 180 mg Sodium Chloride (Normal Saline) 1,000 mls @ 500 mls/hr IV ASDIRECTED [facility] Last Admin: 10/28/19 21:29 Dose: 500 mls/hr Diltiazem HCl 100 mg/ Sodium (Chloride) 100 mls @ 5 mls/hr IV TITRATE [facility]; Protocol Last Titration: 10/29/19 04:33 Dose: 5 mg/hr, 5 mls/hr Levothyroxine Sodium (Levothyroxine) 25 mcg PO ACBREAKFAST [facility] Last Admin: 10/31/19 06:11 Dose: 25 mcg Metoprolol Succinate (Toprol Xl) 200 mg PO DAILY [facility] Last Admin: 10/31/19 09:16 Dose: 200 mg Morphine Sulfate (Ms Contin) 15 mg PO BID [facility] Last Admin: 10/31/19 09:17 Dose: 15 mg Ondansetron HCl (Zofran) 4 mg IV Q4H PRN PRN Reason: Nausea/Vomiting Last Admin: 10/29/19 14:04 Dose: 4 mg Oxycodone HCl (Oxycodone) 5 mg PO Q4H PRN PRN Reason: Pain (moderate 4-6) Pantoprazole Sodium (Protonix) 40 mg PO DAILY PRN PRN Reason: gastric reflux Polyethylene Glycol (Miralax) 17 gm PO BID [facility] Last Admin: 10/31/19 09:17 Dose: 17 gm Senna (Senna) 8.6 mg PO BID [facility] Last Admin: 10/31/19 09:17 Dose: 8.6 mg Discontinued Medications Diltiazem HCl (Cardizem) 10 mg IVPUSH ONETIME ONE Stop: 10/28/19 21:15 Last Admin: 10/28/19 22:48 Dose: Not Given Diltiazem HCl (Cardizem) 30 mg PO Q6HR [facility] Last Admin: 10/29/19 14:28 Dose: 30 mg Diltiazem HCl (Cardizem) 45 mg PO Q6HR [facility] Last Admin: 10/30/19 02:50 Dose: Not Given Diltiazem HCl (Cardizem) 45 mg PO Q6H [facility] Last Admin: 10/30/19 08:22 Dose: 45 mg Diltiazem HCl (Cardizem) 45 mg PO ONETIME ONE Stop: 10/30/19 15:58 Last Admin: 10/30/19 16:08 Dose: 45 mg Lactated Ringer's (Ringers, Lactated) 500 mls @ 999 mls/hr IV .BOLUS ONE Stop: 10/29/19 10:56 Last Admin: 10/29/19 10:40 Dose: 999 mls/hr Morphine Sulfate (Morphine) 2 mg IVPUSH Q2H PRN PRN Reason: Pain (severe 7-10) Stop: 10/30/19 00:06 Last Admin: 10/29/19 00:26 Dose: 2 mg Ondansetron HCl (Zofran) 4 mg IVPUSH ONETIME ONE Stop: 10/28/19 20:40 Last Admin: 10/28/19 21:29 Dose: 4 mg Potassium Chloride (Klor-Con M20) 40 meq PO ONETIME ONE Stop: 10/31/19 11:13 Last Admin: 10/31/19 12:05 Dose: 40 meq - Exam Quality Assessment: Denies: Supplemental Oxygen General: Reports: Alert, Oriented HEENT: Reports: Pupils Equal, Mucous Membr. Moist/[place] Neck: Reports: Supple Lungs: Reports: Clear to Auscultation, Normal Respiratory Effort Cardiovascular: Reports: Irregular Rhythm (Irregular rhythm and rate) GI/Abdominal Exam: Normal Bowel Sounds, Soft, Non-Tender, No Distention Extremities: Normal Inspection, Normal Range of Motion, Non-Tender, No Pedal Edema, Normal Capillary Refill Skin: Reports: Warm, Dry, Intact Psy/Mental Status: Reports: Alert, Normal Affect, Normal Mood
== END 2019-10-31 13:30 | disposition home or self-care (01) | DRG 309 ==
LOC: JD.ED 19:44 → JD.ICU 23:52
PROVIDERS: ADMIT Family Medicine; ATTEND Family Medicine
PROC: 8E0ZXY6 Isolation (ICD-10-PCS; principal; 2019-10-28)
DX: I48.91 Unspecified atrial fibrillation (principal); R09.02 Hypoxemia; C23 Malignant neoplasm of gallbladder; E86.0 Dehydration; I51.7 Cardiomegaly; I10 Essential (primary) hypertension; I25.10 Atherosclerotic heart disease of native coronary artery without angina pectoris; E78.5 Hyperlipidemia, unspecified; K21.9 Gastro-esophageal reflux disease without esophagitis; E03.9 Hypothyroidism, unspecified; Z66 Do not resuscitate; K22.2 Esophageal obstruction; K57.90 Diverticulosis of intestine, part unspecified, without perforation or abscess without bleeding; D64.9 Anemia, unspecified; K80.20 Calculus of gallbladder without cholecystitis without obstruction; R74.8 Abnormal levels of other serum enzymes; H54.7 Unspecified visual loss; E78.00 Pure hypercholesterolemia, unspecified; Z86.010 Personal history of colon polyps; Z79.01 Long term (current) use of anticoagulants; Z90.49 Acquired absence of other specified parts of digestive tract; Z90.710 Acquired absence of both cervix and uterus; Z99.81 Dependence on supplemental oxygen; Z79.899 Other long term (current) drug therapy; Z79.890 Hormone replacement therapy; Z88.8 Allergy status to other drugs, medicaments and biological substances; Z98.49 Cataract extraction status, unspecified eye; Z20.828 Contact with and (suspected) exposure to other viral communicable diseases
CPT/HCPCS: 36415; 71045; 80053; 82728; 83605; 83615; 85025; 85379; 86140; 87040 ×2; 93005; 96361; 96375; 99285; J2405; J7030; U0002; 83735; 84443; 93010; 96365; 96366; 96374; 96376; 99222; 99232; 99239; 99283; A9270-GY; J2270; J3490; J7050; J7120

== ENCOUNTER 2019-12-02 22:00 | Inpatient (IN) | payer MEDICARE, BC ==
--- NOTE | 2019-12-02 22:50 | EDM.PDOC ---
ED HPI GENERAL MEDICAL PROBLEM - General Chief Complaint: Abdominal Pain Stated Complaint: VOMITING ABDOMINAL PAIN Time Seen by Provider: 12/02/19 22:22 Source of Information: Reports: Patient History Limitations: Reports: No Limitations - History of Present Illness INITIAL COMMENTS - FREE TEXT/NARRATIVE: This is a 79 year-old female. 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 She is under the care of Dr. Haley on pain medications. She says the pain medications normally take care of her abdominal pain. Has no medications at home for nausea. Apparently around 7:30 PM this evening she started having increasing abdominal pain with nausea and vomiting. She states she feels really dry and very thirsty. She also thinks she is constipated because she had a very small stool yesterday. She denies any fever or chills she denies any cough or congestion. She is here simply because of the abdominal pain and nausea and vomiting. Patient is a DNR as per her request. He has a history of atrial fibrillation and with her last admission last month she had a rapid ventricular response. She denies any chest pain presently. She denies any shortness of breath. Abdominal Pain Score (Numeric/FACES): 4 - Related Data Allergies Allergy/AdvReac Type Severity Reaction Status Date / Time rosuvastatin [From Crestor] Allergy Muscle Verified 12/02/19 22:13 Aches Home Meds: Home Meds Apixaban [Eliquis] 5 mg PO BID 11/02/17 [History] Levothyroxine 25 mcg PO DAILY 11/02/17 [History] Metoprolol Succinate 200 mg PO DAILY 11/02/17 [History] Cholecalciferol (Vitamin D3) [Vitamin D3] 1,000 unit PO DAILY 08/23/19 [History] Cranberry Fruit Extract [Cranberry] 300 mg PO DAILY 08/23/19 [History] Docusate Sodium [Colace] 500 mg PO TID 08/23/19 [History] Ferrous Sulfate [Iron] 325 mg PO DAILY 08/23/19 [History] Glucosam/Deep-Col.Cplx/D3/C/Mn [Ogqgvsvasqo-Funvqbicnax-C1] 1 tab PO DAILY 08/23 [History] polyethylene glycoL 3350 [MiraLAX] 17 gm PO BID 08/23/19 [History] Hydrocodone/Acetaminophen [[place] 10-325 Tablet] 1 tab PO Q6HR PRN 10/28/19 [ History] Morphine Sulfate [Morphine Sulfate ER] 15 mg PO BID 10/28/19 [History] Sennosides [Senokot] 8.6 mg PO ASDIRECTED PRN 10/28/19 [History] Diltiazem HCl [Diltiazem 24Hr Cd] 180 mg PO BEDTIME #30 cap.er.24h 10/31/19 [Rx] Past Medical History HEENT History: Reports: Cataract, Impaired Vision Other HEENT History: wears glasses Cardiovascular History: Reports: Afib, CAD, High Cholesterol, Hypertension Respiratory History: Reports: None Gastrointestinal History: Reports: Cholelithiasis, Colon Polyp, Diverticulosis, GERD Other Gastrointestinal History: schatzski's ring, gallbladder cancer Genitourinary History: Reports: None [employer] History: Reports: Musculoskeletal History: Reports: None Neurological History: Reports: None Psychiatric History: Reports: None Endocrine/Metabolic History: Reports: Hypothyroidism Hematologic History: Reports: Anemia, Anticoagulation Therapy Immunologic History: Reports: None Oncologic (Cancer) History: Reports: None Dermatologic History: Reports: None - Past Surgical History Head Surgeries/Procedures: Reports: None HEENT Surgical History: Reports: None, Cataract Surgery Cardiovascular Surgical History: Reports: None Respiratory Surgical History: Reports: None GI Surgical History: Reports: None, Appendectomy, Colonoscopy, EGD Female Surgical History: Reports: Hysterectomy Endocrine Surgical History: Reports: None Neurological Surgical History: Reports: None Musculoskeletal Surgical History: Reports: None Oncologic Surgical History: Reports: None Dermatological Surgical History: Reports: None Social & Family History - Family History Family Medical History: Noncontributory - Tobacco Use Smoking Status *Q: Never Smoker Second Hand Smoke Exposure: No - Caffeine Use Caffeine Use: Reports: None ED ROS GENERAL - Review of Systems Review Of Systems: See Below Constitutional: Reports: Weakness. Denies: Fever, Chills HEENT: Reports: No Symptoms Respiratory: Denies: Shortness of Breath, Cough Cardiovascular: Denies: Chest Pain Endocrine: Reports: No Symptoms GI/Abdominal: Reports: Abdominal Pain, Constipation, Nausea, Vomiting : Reports: No Symptoms Musculoskeletal: Reports: No Symptoms Skin: Reports: No Symptoms Neurological: Reports: No Symptoms Psychiatric: Reports: No Symptoms Hematologic/Lymphatic: Reports: No Symptoms ED EXAM, GI/ABD - Physical Exam Exam: See Below Exam Limited By: No Limitations General Appearance: Alert, WD/WN, Mild Distress Eyes: Bilateral: Normal Appearance Ears: Normal External Exam Nose: Normal Inspection Throat/Mouth: Normal Inspection, Normal Lips, Normal Voice, No Airway Compromise , Other (Mucous membranes are tacky but they are not dry) Head: Normocephalic Neck: Supple, Non-Tender Respiratory/Chest: No Respiratory Distress, Lungs Clear, Normal Breath Sounds GI/Abdominal Exam: Soft, Other (Tenderness in the right upper quadrant with slight bogginess noted and there is also tenderness in the left upper quadrant but not in the lower abdomen, bowel sounds are decreased) Back Exam: Full Range of Motion Extremities: Normal Inspection, Normal Range of Motion Neurological: Alert, Oriented Psychiatric: Anxious Skin Exam: Warm, Dry, Other (Fair skin turgor noted) EKG INTERPRETATION EKG Date: 12/02/19 Time: 22:50 EKG Interpretation Comments: EKG shows an atrial fibrillation with a rapid ventricular response rate of 131. There is no acute ST elevation and there is no obvious ischemia noted. 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 I do not believe there is a posterior infarct noted. Course - Vital Signs Last Recorded V/S: Last Vital Signs Temp 99.0 F 12/03/19 00:18 Pulse 82 12/03/19 00:23 Resp 18 12/03/19 00:18 BP 135/79 12/03/19 00:18 Pulse Ox 95 12/03/19 00:18 - Orders/Labs/Meds Orders: Active Orders 24 hr Category Date Time Status EKG Documentation Completion [RC] ASDIRECTED Care 12/02/19 22:39 Active Abdomen Ltd [US] Stat Exams 12/03/19 00:01 Taken CULTURE BLOOD [BC] Stat Lab 12/02/19 23:26 Received CULTURE URINE [RM] Stat Lab 12/02/19 23:25 Ordered LACTIC ACID [CHEM] Stat Lab 12/03/19 01:40 Ordered Piperacillin/Tazobactam 4.5 GM - First Dose Med 12/03/19 01:41 Ordered Piperacillin/Tazobactam [Piperacil-Tazobact] 4.5 gm Sodium Chloride 0.9% [Normal Saline] 100 ml IV ONETIME Sodium Chloride 0.9% [Normal Saline] 1,000 ml Med 12/02/19 23:00 Active IV ASDIRECTED Blood Culture x2 Reflex Set [OM.PC] Stat Oth 12/02/19 23:26 Ordered EKG 12 Lead [EK] Stat Ther 12/02/19 22:39 Ordered Medication Orders Sodium Chloride (Normal Saline) 1,000 mls @ 1,000 mls/hr IV ASDIRECTED ESTHER Last Admin: 12/03/19 01:01 Dose: 1,000 mls/hr Infusion: 12/03/19 00:03 Dose: 1,000 mls/hr Admin: 12/02/19 23:03 Dose: 1,000 mls/hr Labs: Laboratory Tests 12/02/19 12/02/19 12/02/19 Range/Units 22:58 22:58 23:00 WBC 6.37 (3.98-10.04) K/mm3 RBC 4.51 (3.98-5.22) M/mm3 Hgb 13.6 D (11.2-15.7) gm/dl Hct 42.1 (34.1-44.9) % MCV 93.3 (79.4-94.8) fl MCH 30.2 (25.6-32.2) pg MCHC 32.3 (32.2-35.5) g/dl RDW Std Deviation 45.8 (36.4-46.3) fL Plt Count 313 (182-369) K/mm3 MPV 10.8 (9.4-12.3) fl Neut % (Auto) 90.1 H (34.0-71.1) % Lymph % (Auto) 8.3 L (19.3-51.7) % Jenkins % (Auto) 0.8 L (4.7-12.5) % Eos % (Auto) 0.3 L (0.7-5.8) Baso % (Auto) 0.2 (0.1-1.2) % Neut # (Auto) 5.74 (1.56-6.13) K/mm3 Lymph # (Auto) 0.53 L (1.18-3.74) K/mm3 Jenkins # (Auto) 0.05 L (0.24-0.36) K/mm3 Eos # (Auto) 0.02 L (0.04-0.36) K/mm3 Baso # (Auto) 0.01 (0.01-0.08) K/mm3 Manual Slide Review Abnormal smear Sodium 132 L (136-145) mEq/L Potassium 4.3 (3.5-5.1) mEq/L Chloride 97 L (98-107) mEq/L Carbon Dioxide 27 (21-32) mEq/L Anion Gap 12.3 (5-15) BUN 16 (7-18) mg/dL Creatinine 1.0 (0.55-1.02) mg/dL Est Cr Clr Drug Dosing 39.39 mL/min Estimated GFR (MDRD) 53 (>60) mL/min BUN/Creatinine Ratio 16.0 (14-18) Glucose 114 (83-115) mg/dL Lactic Acid (0.4-2.0) mmol/L Calcium 8.8 (8.5-10.1) mg/dL Total Bilirubin 1.7 H (0.2-1.0) mg/dL AST 1632 H (15-37) U/L ALT 993 H (14-59) U/L Alkaline Phosphatase 561 H (46-116) U/L Troponin I < 0.017 (0.00-0.056) ng/mL Total Protein 7.1 (6.4-8.2) g/dl Albumin 3.1 L (3.4-5.0) g/dl Globulin 4.0 gm/dL Albumin/Globulin Ratio 0.8 L (1-2) Lipase 267 (73-393) U/L Urine Color Yellow (Yellow) Urine Appearance Slt cloudy H (Clear) Urine pH 7.0 (5.0-8.0) Ur Specific [place] 1.020 (1.005-1.030) Urine Protein Trace H (Negative) Urine Glucose (UA) Negative (Negative) Urine Ketones Negative (Negative) Urine Occult Blood Trace-intact H (Negative) Urine Nitrite Negative (Negative) Urine Bilirubin Negative (Negative) Urine Urobilinogen 1.0 (0.2-1.0) Ur Leukocyte Esterase 2+ H (Negative) Urine RBC 5-10 H (0-5) /hpf Urine WBC 50-75 H (0-5) /hpf Ur Squamous Epith Cells 5-10 H (0-5) /hpf Urine Bacteria Moderate H (FEW) /hpf Urine Mucus Few (FEW) /hpf 12/02/19 Range/Units 23:19 WBC (3.98-10.04) K/mm3 RBC (3.98-5.22) M/mm3 Hgb (11.2-15.7) gm/dl Hct (34.1-44.9) % MCV (79.4-94.8) fl MCH (25.6-32.2) pg MCHC (32.2-35.5) g/dl RDW Std Deviation (36.4-46.3) fL Plt Count (182-369) K/mm3 MPV (9.4-12.3) fl Neut % (Auto) (34.0-71.1) % Lymph % (Auto) (19.3-51.7) % Jenkins % (Auto) (4.7-12.5) % Eos % (Auto) (0.7-5.8) Baso % (Auto) (0.1-1.2) % Neut # (Auto) (1.56-6.13) K/mm3 Lymph # (Auto) (1.18-3.74) K/mm3 Jenkins # (Auto) (0.24-0.36) K/mm3 Eos # (Auto) (0.04-0.36) K/mm3 Baso # (Auto) (0.01-0.08) K/mm3 Manual Slide Review Sodium (136-145) mEq/L Potassium (3.5-5.1) mEq/L Chloride (98-107) mEq/L Carbon Dioxide (21-32) mEq/L Anion Gap (5-15) BUN (7-18) mg/dL Creatinine (0.55-1.02) mg/dL Est Cr Clr Drug Dosing mL/min Estimated GFR (MDRD) (>60) mL/min BUN/Creatinine Ratio (14-18) Glucose (83-115) mg/dL Lactic Acid 2.7 H* (0.4-2.0) mmol/L Calcium (8.5-10.1) mg/dL Total Bilirubin (0.2-1.0) mg/dL AST (15-37) U/L ALT (14-59) U/L Alkaline Phosphatase (46-116) U/L Troponin I (0.00-0.056) ng/mL Total Protein (6.4-8.2) g/dl Albumin (3.4-5.0) g/dl Globulin gm/dL Albumin/Globulin Ratio (1-2) Lipase (73-393) U/L Urine Color (Yellow) Urine Appearance (Clear) Urine pH (5.0-8.0) Ur Specific [place] (1.005-1.030) Urine Protein (Negative) Urine Glucose (UA) (Negative) Urine Ketones (Negative) Urine Occult Blood (Negative) Urine Nitrite (Negative) Urine Bilirubin (Negative) Urine Urobilinogen (0.2-1.0) Ur Leukocyte Esterase (Negative) Urine RBC (0-5) /hpf Urine WBC (0-5) /hpf Ur Squamous Epith Cells (0-5) /hpf Urine Bacteria (FEW) /hpf Urine Mucus (FEW) /hpf Meds: Medications Generic Name Dose Route Start Last Admin Trade Name Freq PRN Reason Stop Dose Admin Sodium Chloride 1,000 mls @ 1,000 mls/hr 12/02/19 23:00 12/03/19 01:01 Normal Saline IV 1,000 mls/hr ASDIRECTED ESTHER Administration Discontinued Medications Generic Name Dose Route Start Last Admin Trade Name Freq PRN Reason Stop Dose Admin Diltiazem HCl 20 mg 12/03/19 00:12 12/03/19 00:19 Cardizem IVPUSH 12/03/19 00:13 20 mg ONETIME ONE Administration Hydromorphone HCl 1 mg 12/02/19 22:57 12/02/19 23:05 Dilaudid IVPUSH 12/02/19 22:58 1 mg ONETIME ONE Administration Ceftriaxone Sodium 1 gm/ 100 mls @ 200 mls/hr 12/03/19 00:09 12/03/19 00:19 Sodium Chloride IV 12/03/19 00:38 200 mls/hr ONETIME ONE Administration Ondansetron HCl 4 mg 12/02/19 22:56 12/02/19 23:03 Zofran IVPUSH 12/02/19 22:57 4 mg ONETIME ONE Administration - Radiology Interpretation Free Text/Narrative:: Ultrasound of the right upper quadrant and gallbladder suggestion she has some possible local invasion of the gallbladder cancer into the liver she also has perihepatic fluid collections the left inferior left superior and the right inferior with collections each about the size of a small plum. - Re-Assessments/Exams Free Text/Narrative Re-Assessment/Exam: 12/02/19 23:27 The urine showed moderate bacteria with many white cells and positive leukocyte esterase. I will get a urine culture as well and to blood cultures. Her liver enzymes are markedly elevated with a total bili of 1.7 AST of 1632 ALT of 993 and an alk phos of 561. The lipase is normal. Her white count is 6.37. 12/02/19 23:31 I did speak to the patient's and son that were sitting in the lobby regarding her status. I did this with the patient's permission. 12/03/19 00:15 Spoke to the son and again a urinary tract infection. Her liver enzymes are markedly elevated her lactic acid is elevated she is dehydrated and she has atrial fibrillation with a rapid ventricular response. Considering all these factors she probably needs to be in the hospital again to hopefully tune her up and control her pain and nausea and vomiting. 12/03/19 01:[address] Newberry regarding the ultrasound lab results and the medications. We are going to put her into the hospital for continued therapy and hydration. Departure - Departure Time of Disposition: 01:43 Disposition: Admitted As Inpatient 66 Condition: Poor Clinical Impression: Gallbladder cancer, carcinoma, Right upper quadrant abdominal pain, Dehydration , Atrial fibrillation with rapid ventricular response, Lactic acid increased Nausea and vomiting Qualifiers: Vomiting type: unspecified Vomiting Intractability: non-intractable Qualified Code(s): R11.2 - Nausea with vomiting, unspecified Urinary tract infection Qualifiers: Urinary tract infection type: acute cystitis Hematuria presence: with hematuria Qualified Code(s): N30.01 - Acute cystitis with hematuria - Discharge Information Sepsis Event Note - Evaluation Sepsis Screening Result: No Definite Risk - Focused Exam Vital Signs: Vital Signs Temp Pulse Resp BP Pulse Ox 12/03/19 00:23 82 12/03/19 00:18 99.0 F 135 H 18 135/79 95 12/02/19 23:20 97.1 F 103 H 15 118/79 99 12/02/19 22:12 96.1 F L 116 H 20 145/115 H 91 L Date Exam was Performed: 12/03/19 Time Exam was Performed: 01:41 ED Communication - ED Communication Date/Time Date: 05/16/20 Time Called: 01:45 - Discussed Case With (1) Discussed Case With (1): Admitting Provider Person/s Notified (1): Namrata Perry (She will admit for further evaluation and treatment) - My Orders Last 24 Hours: My Active Orders 12/02/19 22:39 EKG Documentation Completion [RC] ASDIRECTED EKG 12 Lead [EK] Stat 12/02/19 23:00 Sodium Chloride 0.9% [Normal Saline] 1,000 ml IV ASDIRECTED 12/02/19 23:25 CULTURE URINE [RM] Stat 12/02/19 23:26 CULTURE BLOOD [BC] Stat Blood Culture x2 Reflex Set [OM.PC] Stat 12/03/19 00:01 Abdomen Ltd [US] Stat 12/03/19 01:40 LACTIC ACID [CHEM] Stat 12/03/19 01:41 Piperacillin/Tazobactam 4.5 GM - First Dose Piperacillin/Tazobactam [Piperacil- Tazobact] 4.5 gm Sodium Chloride 0.9% [Normal Saline] 100 ml IV ONETIME - Assessment/Plan Last 24 Hours: My Active Orders 12/02/19 22:39 EKG Documentation Completion [RC] ASDIRECTED EKG 12 Lead [EK] Stat 12/02/19 23:00 Sodium Chloride 0.9% [Normal Saline] 1,000 ml IV ASDIRECTED 12/02/19 23:25 CULTURE URINE [RM] Stat 12/02/19 23:26 CULTURE BLOOD [BC] Stat Blood Culture x2 Reflex Set [OM.PC] Stat 12/03/19 00:01 Abdomen Ltd [US] Stat 12/03/19 01:40 LACTIC ACID [CHEM] Stat 12/03/19 01:41 Piperacillin/Tazobactam 4.5 GM - First Dose Piperacillin/Tazobactam [Piperacil- Tazobact] 4.5 gm Sodium Chloride 0.9% [Normal Saline] 100 ml IV ONETIME
[2019-12-02] MEDS ORDERED: Ondansetron 4 MG/2 ML SDV IVPUSH ONE (22:56)
[2019-12-02] MEDS ORDERED: HYDROmorphone 1 MG/ML Syringe IVPUSH ONE (22:57)
[2019-12-02] MEDS: Sodium Chloride 0.9% 1,000 ML IV SCH (23:03)
[2019-12-03] MEDS ORDERED: cefTRIAXone 1 GM in Sodium Chloride 0.9% 100 ML IV ONE (00:09)
[2019-12-03] MEDS ORDERED: Diltiazem 50 MG/10 ML SDV IVPUSH ONE ×2 (00:12→02:03)
[2019-12-03] MEDS: Sodium Chloride 0.9% 1,000 ML IV SCH (01:01)
[2019-12-03] MEDS ORDERED: Piperacillin/Tazobactam 4.5 GM in Sodium Chloride 0.9% 100 ML IV ONE (01:41)
[2019-12-03] MEDS ORDERED: Magnesium Citrate Solution 296 ML Bottle PO ONE (02:04)
[2019-12-03] MEDS ORDERED: Sodium Chloride 0.9% 1,000 ML IV SCH (02:45)
[2019-12-03] MEDS ORDERED: Ondansetron 4 MG/2 ML SDV IVPUSH PRN (03:29)
[2019-12-03] MEDS: HYDROmorphone 0.5 MG/0.5 ML Syringe IVPUSH PRN ×2 (03:40→05:20)
[2019-12-03] MEDS ORDERED: Lactated Ringers 1,000 ML IV ONE (06:21)
[2019-12-03] MEDS: Lactated Ringers 1,000 ML IV SCH ×4 (07:32→22:48)
[2019-12-03] MEDS: HYDROmorphone 1 MG/ML Syringe IVPUSH PRN ×3 (07:33→20:28)
--- NOTE | 2019-12-03 08:33 | PCM.HP.2 ---
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 As per patient the past couple of months he has been having decreased oral intake, tolerating only liquids. Yesterday she had some broth around 6 PM and an hour and half later started vomiting. As for her abdominal pain she grades at 7/10, unable to localize any specific part of her stomach, nonradiating, with no associated symptoms other than the nausea and vomiting. Abdominal Pain Score (Numeric/FACES): 4 - Related Data Allergies/Adverse Reactions: Allergies Allergy/AdvReac Type Severity Reaction Status Date / Time rosuvastatin [From Crestor] AdvReac Muscle Verified 12/03/19 09:20 Aches Home Medications: Home Meds Apixaban [Eliquis] 5 mg PO BID 11/02/17 [History] Levothyroxine 25 mcg PO DAILY 11/02/17 [History] Cholecalciferol (Vitamin D3) [Vitamin D3] 1,000 unit PO DAILY 08/23/19 [History] Cranberry Fruit Extract [Cranberry] 300 mg PO DAILY 08/23/19 [History] Docusate Sodium [Colace] 100 mg PO TID 08/23/19 [History] Ferrous Sulfate [Iron] 325 mg PO DAILY 08/23/19 [History] Glucosam/Deep-Col.Cplx/D3/C/Mn [Csskcsldfwg-Wsiiorhsfak-F5] 1 tab PO DAILY 08/23 [History] Hydrocodone/Acetaminophen [[place] 10-325 Tablet] 1 tab PO Q6HR PRN 10/28/19 [ History] Morphine Sulfate [Morphine Sulfate ER] 15 mg PO BID 10/28/19 [History] Sennosides [Senokot] 8.6 mg PO ASDIRECTED PRN 10/28/19 [History] Cyanocobalamin (Vitamin B-12) [Vitamin B-12] 2,500 mcg PO DAILY 12/03/19 [ History] Hydrocodone/Acetaminophen [Hydrocodone-Acetamin 7.5-325] 1 tab PO Q6HR PRN 12/02 [History] Metoprolol Succinate 200 mg PO DAILY 12/03/19 [History] Omeprazole 20 mg PO DAILY 12/03/19 [History] Pantoprazole [ProTONIX] 40 mg PO DAILY 12/03/19 [History] dilTIAZem HCL [Cartia Xt] 180 mg PO BEDTIME 12/03/19 [History] fentaNYL [Fentanyl] 12 mcg TOP ASDIRECTED 12/03/19 [History] polyethylene glycoL 3350 [Clearlax] 5 ml PO BID 12/03/19 [History] Past Medical History HEENT History: Reports: Cataract, Impaired Vision Other HEENT History: wears glasses Cardiovascular History: Reports: Afib, CAD, High Cholesterol, Hypertension Respiratory History: Reports: None Gastrointestinal History: Reports: Cholelithiasis, Colon Polyp, Diverticulosis, GERD Other Gastrointestinal History: schatzski's ring, gallbladder cancer Genitourinary History: Reports: None [employer]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: Musculoskeletal History: Reports: None Neurological History: Reports: None Psychiatric History: Reports: None Endocrine/Metabolic History: Reports: Hypothyroidism Hematologic History: Reports: Anemia, Anticoagulation Therapy Immunologic History: Reports: None Oncologic (Cancer) History: Reports: Other (See Below) Other Oncologic History: gallbladder CA with METS Dermatologic History: Reports: None - Past Surgical History Head Surgeries/Procedures: Reports: None HEENT Surgical History: Reports: Cataract Surgery Cardiovascular Surgical History: Reports: None Respiratory Surgical History: Reports: None GI Surgical History: Reports: None, Appendectomy, Colonoscopy, EGD Female Surgical History: Reports: Hysterectomy Endocrine Surgical History: Reports: None Neurological Surgical History: Reports: None Musculoskeletal Surgical History: Reports: None Dermatological Surgical History: Reports: None Social & Family History - Family History Family Medical History: Noncontributory - Tobacco Use Smoking Status *Q: Never Smoker Second Hand Smoke Exposure: No - Caffeine Use Caffeine Use: Reports: None - Recreational Drug Use Recreational Drug Use: No H&P Review of Systems - Review of Systems: Review Of Systems: See Below General: Reports: Malaise, Weakness, Decreased Appetite. Denies: Fever, Chills , Fatigue, Night Sweats, Diaphoresis HEENT: Denies: Rhinitis, Post Nasal Drip, Sinus Congestion, Sore Throat, Vertigo , Visual Changes Pulmonary: Denies: Shortness of Breath, Wheezing, Pleuritic Chest Pain, Cough, Sputum, Hemoptysis Cardiovascular: Denies: Chest Pain, Palpitations, Dyspnea on Exertion, Orthopnea , PND, Edema, Lightheadedness, Syncope Gastrointestinal: Reports: Abdominal Pain, Anorexia, Constipation, Decreased Appetite, Distension, Nausea, Vomiting Genitourinary: Denies: Dysuria, Frequency, Burning, Pain, Urgency, Incontinence Musculoskeletal: Denies: Joint Pain, Joint Swelling, Muscle Pain, Muscle Stiffness Skin: Reports: Pallor. Denies: Cyanosis, Jaundice, Mottled, Diaphoresis Psychiatric: Denies: Confusion Neurological: Denies: Dizziness, Headache, Numbness, Paresthesia Exam - Exam Exam: See Below - Vital Signs Vital Signs: Last Vital Signs Temp 98.1 F 12/03/19 03:31 Pulse 104 H 12/03/19 03:31 Resp 20 12/03/19 03:31 BP 142/99 H 12/03/19 03:31 Pulse Ox 98 12/03/19 08:17 Weight: 61.779 kg - Exam General: Alert, Oriented, Cooperative, Mild Distress, Moderate Distress HEENT: Conjunctiva Clear, EOMI, Hearing Intact, Pupils Equal, Pupils Reactive Neck: Supple, Trachea Midline, +2 Carotid Pulse wo Bruit, Full Range of Motion. No: Lymphadenopathy Lungs: Clear to Auscultation, Normal Respiratory Effort. No: Crackles, Rales, Rhonchi, Rub, Stridor, Wheezing Cardiovascular: Regular Rate, Irregular Rhythm. No: Systolic Murmur, Diastolic Murmur, Rubs, Gallop/S3, Gallop/S4 GI/Abdominal Exam: Soft, Distended, Guarding, Tender, Abnormal Bowel Sounds. No : Rigid, Rebound Back Exam: Other (significant intercostal muscle wasting) Extremities: Other (muscle wasting with pallor) Neuro Extensive - Mental Status: Alert Psychiatric: Alert, Depressed - Patient Data Result Diagrams: 12/03/19 05:16 12/03/19 05:16 Sepsis Event Note - Evaluation Sepsis Screening Result: No Definite Risk - Focused Exam Vital Signs: Vital Signs Temp Temp Pulse Pulse Resp BP BP 12/03/19 08:17 12/03/19 03:31 98.1 F 104 H 20 142/99 H 05/16/20 02:31 96.9 F 92 15 111/70 12/03/19 00:23 82 12/03/19 00:18 99.0 F 135 H 18 135/79 12/02/19 23:20 97.1 F 103 H 15 118/79 12/02/19 22:12 96.1 F L 116 H 20 145/115 H Pulse Ox Pulse Ox 12/03/19 08:17 98 12/03/19 03:31 96 12/03/19 02:31 96 12/03/19 00:23 12/03/19 00:18 95 12/02/19 23:20 99 12/02/19 22:12 91 L Date Exam was Performed: 12/04/19 Time Exam was Performed: 19:20 - Problem List (1) Atrial fibrillation with rapid ventricular response SNOMED Code(s): 205602003132489 ICD Code: I48.91 - UNSPECIFIED ATRIAL FIBRILLATION Status: Acute Current Visit: Yes (2) Volume depletion SNOMED Code(s): 339728806 ICD Code: E86.9 - VOLUME DEPLETION, UNSPECIFIED Status: Acute Current Visit: Yes (3) 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 SNOMED Code(s): 426339687, 355180937 ICD Code: C23 - MALIGNANT NEOPLASM OF GALLBLADDER Status: Acute Current Visit: Yes (4) Lactic acid increased SNOMED Code(s): 58337417 ICD Code: E87.2 - ACIDOSIS Status: Acute Current Visit: Yes (5) Nausea and vomiting SNOMED Code(s): 75815141 ICD Code: R11.2 - NAUSEA WITH VOMITING, UNSPECIFIED Status: Acute Current Visit: Yes Qualifiers: Vomiting type: unspecified Vomiting Intractability: non-intractable Qualified Code(s): R11.2 - Nausea with vomiting, unspecified (6) Inadequate pain control SNOMED Code(s): 965185042 ICD Code: R52 - PAIN, UNSPECIFIED Status: Acute Current Visit: Yes (7) Urinary tract infection SNOMED Code(s): 49896263 ICD Code: N39.0 - URINARY TRACT INFECTION, SITE NOT SPECIFIED Status: Acute Current Visit: Yes Qualifiers: Urinary tract infection type: acute cystitis Hematuria presence: with hematuria Qualified Code(s): N30.01 - Acute cystitis with hematuria Problem List Initiated/Reviewed/Updated: Yes Assessment/Plan Comment:: Atrial fibrillation with rapid ventricular response Found to be in RVR in ED Given IV diltiazem which controlled rate PLAN - Telemetry - Increase home Cardizem UTI Increased urinary frequency + pathologic UA PLAN - Rocephin QD x 3 days - Urine culture 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 Nausea and vomiting with volume depletion Lactic acid increased Inadequate pain control Diagnosed August 2019 Biliary stent placed in September Patient declined chemotherapy and is currently only getting pain control Pain has been getting increasingly worse for the past couple of weeks Lactic acid is not elevated 2/2 sepsis but rather increased metabolic demands for neoplastic process PLAN - Adjust Fentanyl patch to 25 - Restart home long acting morphine - PRN Dilaudid for break through - Replete volume with LR PROPHYLAXIS DVT- Eliquis GI- not indicated CODE STATUS: DNR/DNI DISPOSITION: Patient will be admitted to the med surg unit for IV antibiotics, pain control and IV fluid repletion. - Mortality Measure Prognosis:: Poor
--- NOTE | 2019-12-03 10:10 | US ---
Limited abdominal ultrasound: Multiple real-time images of the upper right abdomen were obtained. Comparison: Prior CT abdomen and pelvis exam of 04/09/10. Fluid is noted around the liver. Intraluminal findings are seen within the gallbladder and uncertain how much of this represents gallstones versus intraluminal masses. Gallbladder wall is also poorly seen. Hypoechoic area is noted next to the gallbladder measuring 2.4 cm in size which could represent focal fatty sparing as well as local invasion of gallbladder carcinoma into the liver. No additional abnormality seen within the liver. No biliary duct dilatation is seen. Pancreas felt to show no discrete abnormality. Inferior vena cava is patent. Main portal vein shows normal hepatopedal flow. Impression: 1. Mild ascites around the liver. 2. Abnormal gallbladder, uncertain how much represents intraluminal gallstones versus soft tissue masses. 3. Hypoechoic area measuring 2.4 cm next to the gallbladder which could represent focal fatty sparing or local extension of gallbladder carcinoma. 4. No additional abnormality is appreciated. Diagnostic code #9 This report was dictated in MDT I agree with preliminary report from [facility], finalized on 12/03/19, 2:33 AM Central Daylight Time
[2019-12-03] MEDS ORDERED: fentaNYL 25 MCG/HR Transdermal Patch TOP SCH (11:00)
[2019-12-03] MEDS: Morphine 15 MG Tab.ER PO SCH ×2 (11:16→20:10)
[2019-12-03] MEDS: Docusate Sodium 100 MG Cap PO SCH ×2 (15:28→20:11)
[2019-12-03] MEDS: Apixaban 5 MG Tab PO SCH (20:10)
[2019-12-03] MEDS: Polyethylene Glycol 3350 Powder 17 GM Packet PO SCH (20:11)
[2019-12-03] MEDS ORDERED: Diltiazem 180 MG Cap.CD PO SCH (21:00)
[2019-12-03] MEDS: Diltiazem 50 MG/10 ML SDV IVPUSH PRN (21:04)
[2019-12-04] MEDS: Diltiazem 50 MG/10 ML SDV IVPUSH PRN ×2 (01:58→06:30)
[2019-12-04] MEDS: Levothyroxine 25 MCG Tab PO SCH (06:12)
[2019-12-04] MEDS: HYDROmorphone 1 MG/ML Syringe IVPUSH PRN ×3 (08:16→18:32)
[2019-12-04] MEDS: Pantoprazole 40 MG Tab.CR PO SCH (08:21)
[2019-12-04] MEDS: Morphine 15 MG Tab.ER PO SCH ×2 (08:22→21:56)
[2019-12-04] MEDS: Metoprolol Succinate 50 MG Tab.ER PO SCH (08:22)
[2019-12-04] MEDS: Apixaban 5 MG Tab PO SCH ×2 (08:22→21:58)
[2019-12-04] MEDS: Docusate Sodium 100 MG Cap PO SCH ×3 (08:22→21:58)
[2019-12-04] MEDS: Polyethylene Glycol 3350 Powder 17 GM Packet PO SCH ×2 (08:23→21:58)
[2019-12-04] MEDS: cefTRIAXone 2 GM in Sodium Chloride 0.9% 100 ML IV SCH (10:50)
--- NOTE | 2019-12-04 12:06 | PCM.PN ---
- General Info Date of Service: 12/04/19 Subjective Update: Slept OK Drinking ensures only Still having some nausea after eating Pain still not controlled Has not had a BM in 4 days - Patient Data Vitals - Most Recent: Last Vital Signs Temp 97.9 F 12/04/19 04:01 Pulse 105 H 12/04/19 08:22 Resp 17 12/04/19 04:01 BP 102/54 L 12/04/19 08:22 Pulse Ox 96 12/04/19 04:01 Weight - Most Recent: 67.721 kg - Exam General: Alert, Oriented, Cooperative, Mild Distress, Moderate Distress HEENT: Pupils Equal, Pupils Reactive, Mucous Membr. Moist/[place] Neck: Supple, Trachea Midline Lungs: Normal Respiratory Effort, Wheezing. No: Clear to Auscultation, Crackles , Rales, Rhonchi, Rub Cardiovascular: Regular Rate, Regular Rhythm. No: Murmurs, Gallops, Rubs GI/Abdominal Exam: Normal Bowel Sounds, Distended, Tender Extremities: Normal Inspection, Slow Capillary Refill Neurological: No New Focal Deficit Psy/Mental Status: Alert, Depressed Sepsis Event Note - Evaluation Sepsis Screening Result: No Definite Risk - Focused Exam Vital Signs: Vital Signs Temp Pulse Resp BP Pulse Ox 12/04/19 08:22 105 H 102/54 L 12/04/19 04:01 97.9 F 102 H 17 100/67 96 12/04/19 00:06 97.9 F 118 H 17 105/50 L 96 Date Exam was Performed: 12/05/19 Time Exam was Performed: 07:27 - Problem List & Annotations (1) Atrial fibrillation with rapid ventricular response SNOMED Code(s): 648269134260064 Code(s): I48.91 - UNSPECIFIED ATRIAL FIBRILLATION Status: Acute Current Visit: Yes (2) Volume depletion SNOMED Code(s): 972638482 Code(s): E86.9 - VOLUME DEPLETION, UNSPECIFIED Status: Acute Current Visit: Yes (3) 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 SNOMED Code(s): 692804378, 552493004 Code(s): C23 - MALIGNANT NEOPLASM OF GALLBLADDER Status: Acute Current Visit: Yes (4) Lactic acid increased SNOMED Code(s): 25510414 Code(s): E87.2 - ACIDOSIS Status: Acute Current Visit: Yes (5) Nausea and vomiting SNOMED Code(s): 12299526 Code(s): R11.2 - NAUSEA WITH VOMITING, UNSPECIFIED Status: Acute Current Visit: Yes Qualifiers: Vomiting type: unspecified Vomiting Intractability: non-intractable Qualified Code(s): R11.2 - Nausea with vomiting, unspecified (6) Inadequate pain control SNOMED Code(s): 513300313 Code(s): R52 - PAIN, UNSPECIFIED Status: Acute Current Visit: Yes (7) Urinary tract infection SNOMED Code(s): 61964293 Code(s): N39.0 - URINARY TRACT INFECTION, SITE NOT SPECIFIED Status: Acute Current Visit: Yes Qualifiers: Urinary tract infection type: acute cystitis Hematuria presence: with hematuria Qualified Code(s): N30.01 - Acute cystitis with hematuria (8) Constipation SNOMED Code(s): 26759252 Code(s): K59.00 - CONSTIPATION, UNSPECIFIED Status: Acute Current Visit: Yes - Problem List Review Problem List Initiated/Reviewed/Updated: Yes - Plan Plan:: Atrial fibrillation, rate controlled on Eliquis Found to be in RVR in ED Given IV diltiazem which controlled rate PLAN - Telemetry - Continue Cardizem UTI 2/2 gram negative rods Increased urinary frequency + pathologic UA PLAN - Rocephin day 2/3 - Urine culture 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 Nausea and vomiting Lactic acid increased Inadequate pain control Diagnosed August 2019 Biliary stent placed in September Patient declined chemotherapy and is currently only getting pain control Pain has been getting increasingly worse for the past couple of weeks Lactic acid is not elevated 2/2 sepsis but rather increased metabolic demands for neoplastic process PLAN - Continue Fentanyl patch 25 - Continue home long acting morphine - PRN Dilaudid for break through Volume depletion, resolved Rapid ventricular rate, resolved PROPHYLAXIS DVT- Eliquis GI- not indicated CODE STATUS: DNR/DNI DISPOSITION: Patient will remain admitted to the med surg unit for pain control and antibiotics.
[2019-12-04] MEDS: Lactulose Soln 10 GM/15 ML 30 ML UD Cup PO SCH ×2 (13:22→18:36)
[2019-12-04] MEDS: Diltiazem IR 60 MG Tab PO SCH ×2 (13:23→21:58)
[2019-12-04] MEDS: Ondansetron 4 MG/2 ML SDV IVPUSH SCH ×2 (13:24→21:58)
[2019-12-04] MEDS: Levalbuterol HCl 0.63 MG/3 ML Neb NEB SCH ×2 (13:32→20:30)
[2019-12-05] MEDS: Lactulose Soln 10 GM/15 ML 30 ML UD Cup PO SCH (01:41)
[2019-12-05] MEDS: HYDROmorphone 1 MG/ML Syringe IVPUSH PRN ×5 (03:59→18:08)
[2019-12-05] MEDS: Ondansetron 4 MG/2 ML SDV IVPUSH SCH ×4 (03:59→20:28)
[2019-12-05] MEDS: Diltiazem IR 60 MG Tab PO SCH (05:41)
[2019-12-05] MEDS: Levothyroxine 25 MCG Tab PO SCH (05:42)
[2019-12-05] MEDS: Levalbuterol HCl 0.63 MG/3 ML Neb NEB SCH ×3 (06:20→20:32)
[2019-12-05] MEDS: Metoprolol Succinate 50 MG Tab.ER PO SCH (08:06)
[2019-12-05] MEDS: Pantoprazole 40 MG Tab.CR PO SCH (08:07)
[2019-12-05] MEDS: Morphine 15 MG Tab.ER PO SCH ×2 (08:07→15:20)
[2019-12-05] MEDS: Docusate Sodium 100 MG Cap PO SCH ×3 (08:08→20:28)
[2019-12-05] MEDS: Apixaban 5 MG Tab PO SCH (08:08)
[2019-12-05] MEDS: Polyethylene Glycol 3350 Powder 17 GM Packet PO SCH ×2 (08:15→20:27)
[2019-12-05] MEDS ORDERED: Furosemide 20 MG/2 ML VIAL IVPUSH ONE ×2 (09:00)
[2019-12-05] MEDS: cefTRIAXone 2 GM in Sodium Chloride 0.9% 100 ML IV SCH (10:30)
[2019-12-05] MEDS ORDERED: Lactoperoxi/Gluc Oxid/Pot Thio 42 GM Tube MUCMEM PRN (13:31)
[2019-12-05] MEDS ORDERED: Acetaminophen 325 MG Tab PO PRN (13:31)
[2019-12-05] MEDS: Simethicone 80 MG Tab.Chew PO SCH ×2 (13:58→18:10)
--- NOTE | 2019-12-05 14:15 | PCM.PN ---
- General Info Date of Service: 12/05/19 Subjective Update: Slept OK Pain is still not controlled Feeling bloated - Patient Data Vitals - Most Recent: Last Vital Signs Temp 97.9 F 12/05/19 12:44 Pulse 67 12/05/19 12:44 Resp 16 12/05/19 12:44 BP 118/38 L 12/05/19 12:44 Pulse Ox 95 12/05/19 13:22 Weight - Most Recent: 67.721 kg - Exam Quality Assessment: Supplemental Oxygen General: Alert, Oriented, Cooperative, Moderate Distress HEENT: Other (Oral mucosa is dry) Neck: Supple, Trachea Midline, No JVD Lungs: Clear to Auscultation, Decreased Breath Sounds, Wheezing (Intermittent, improved from yesterday). No: Crackles, Rales, Rhonchi, Rub, Stridor Cardiovascular: Regular Rate, Regular Rhythm. No: Murmurs, Gallops, Rubs GI/Abdominal Exam: Normal Bowel Sounds, Distended, Guarding, Rigid, Tender. No : Rebound Extremities: Normal Inspection, Slow Capillary Refill Skin: Warm, Dry Neurological: No New Focal Deficit Psy/Mental Status: Alert, Depressed Sepsis Event Note - Evaluation Sepsis Screening Result: No Definite Risk - Focused Exam Vital Signs: Vital Signs Temp Pulse Resp BP Pulse Ox Pulse Ox 12/05/19 13:22 95 12/05/19 12:44 97.9 F 67 16 118/38 L 95 12/05/19 08:06 49 L 115/46 L 12/05/19 07:32 97.3 F 49 L 16 115/46 L 94 L 12/05/19 06:21 92 L 12/05/19 03:25 97.3 F 98 18 139/95 H 96 Date Exam was Performed: 12/05/19 Time Exam was Performed: 14:53 - Problem List & Annotations (1) Comfort measures only status SNOMED Code(s): 86976391327896 Code(s): Z51.5 - ENCOUNTER FOR PALLIATIVE CARE Status: Acute Current Visit: Yes (2) Atrial fibrillation with rapid ventricular response SNOMED Code(s): 732713866309868 Code(s): I48.91 - UNSPECIFIED ATRIAL FIBRILLATION Status: Acute Current Visit: Yes (3) Volume depletion SNOMED Code(s): 279838296 Code(s): E86.9 - VOLUME DEPLETION, UNSPECIFIED Status: Acute Current Visit: Yes (4) 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 SNOMED Code(s): 870882039, 182357163 Code(s): C23 - MALIGNANT NEOPLASM OF GALLBLADDER Status: Acute Current Visit: Yes (5) Lactic acid increased SNOMED Code(s): 43413049 Code(s): E87.2 - ACIDOSIS Status: Acute Current Visit: Yes (6) Nausea and vomiting SNOMED Code(s): 76451261 Code(s): R11.2 - NAUSEA WITH VOMITING, UNSPECIFIED Status: Acute Current Visit: Yes Qualifiers: Vomiting type: unspecified Vomiting Intractability: non-intractable Qualified Code(s): R11.2 - Nausea with vomiting, unspecified (7) Inadequate pain control SNOMED Code(s): 633329090 Code(s): R52 - PAIN, UNSPECIFIED Status: Acute Current Visit: Yes (8) Urinary tract infection SNOMED Code(s): 32798998 Code(s): N39.0 - URINARY TRACT INFECTION, SITE NOT SPECIFIED Status: Acute Current Visit: Yes Qualifiers: Urinary tract infection type: acute cystitis Hematuria presence: with hematuria Qualified Code(s): N30.01 - Acute cystitis with hematuria (9) Constipation SNOMED Code(s): 66633477 Code(s): K59.00 - CONSTIPATION, UNSPECIFIED Status: Acute Current Visit: Yes - Problem List Review Problem List Initiated/Reviewed/Updated: Yes - Plan Plan:: Comfort care only status Suboptimal pain control 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 fib and RVR in the emergency department controlled with IV diltiazem Started on PO diltiazem--> patient is asymptomatic and has been more or less rate controlled As for her pain prior to admission patient was taking MS Contin 15 mg twice a day and had a 12 mg fentanyl patch -Fentanyl patch was increased to 25 on admission -PRN Dilaudid was ordered for breakthrough pain -Adjustments according to needs this morning were made - MS Contin 45 mg 3 times a day - Fentanyl patch 50 - PRN Dilaudid every hour for breakthrough Discussion was had with patient's , son and daughter in patient's room regarding goals of care - Family and patient requesting home with hospice - Discussed poor prognosis - Family and patient aware of prognosis and requesting patient care to be focused only on her comfort - 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 and they agreed - All questions were answered Patient also states she has been having worsening nausea as well as increased belching and bloating PLAN - Adjust pain control depending on patient needs - Vital signs daily - Scheduled Zofran and Simethicone - PRN Morphine, Ativan, Haldol, Zofran - Hospice care consult today at 3PM - Discontinue all other medications - Palliative care management only - Consult pnp - Avoid unnecessary interruptions 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 Atrial fibrillation, rate controlled on Eliquis UTI 2/2 Klebsiella Nausea and vomiting Lactic acid increased Inadequate pain control Volume depletion, resolved Rapid ventricular rate, resolved PROPHYLAXIS: discontinued CODE STATUS: Comfort care status DISPOSITION: Patient will remain admitted to the med surg unit for pain control and pending placement. PROGNOSIS IS VERY GUARDED AT THIS TIME
[2019-12-05] MEDS: Haloperidol Lactate 5 MG/ML SDV IVPUSH PRN (18:08)
[2019-12-06] MEDS: Ondansetron 4 MG/2 ML SDV IVPUSH SCH ×7 (01:04→23:59)
[2019-12-06] MEDS: Morphine 15 MG Tab.ER PO SCH ×2 (01:04→03:04)
[2019-12-06] MEDS: HYDROmorphone 1 MG/ML Syringe IVPUSH PRN ×4 (04:16→20:17)
[2019-12-06] MEDS: LORazepam 2 MG/ML SDV IVPUSH PRN ×3 (05:00→21:37)
[2019-12-06] MEDS: Levalbuterol HCl 0.63 MG/3 ML Neb NEB SCH (05:30)
[2019-12-06] MEDS: Simethicone 80 MG Tab.Chew PO SCH ×3 (07:22→18:25)
[2019-12-06] MEDS ORDERED: Morphine 15 MG Tab.ER PO SCH ×2 (09:00→10:00)
[2019-12-06] MEDS: fentaNYL 50 MCG/HR Transdermal Patch TRDERM SCH (09:07)
[2019-12-06] MEDS: Polyethylene Glycol 3350 Powder 17 GM Packet PO SCH ×2 (09:12→21:07)
[2019-12-06] MEDS: Docusate Sodium 100 MG Cap PO SCH ×3 (09:12→23:42)
[2019-12-06] MEDS ORDERED: Levalbuterol HCl 1.25 MG/3 ML Neb NEB PRN (10:17)
[2019-12-06] MEDS: Morphine 4 MG/ML VIAL IVPUSH PRN ×3 (10:46→18:56)
--- NOTE | 2019-12-06 12:13 | PCM.PN ---
- General Info Date of Service: 12/06/19 Subjective Update: per nursing patient slept OK - Did have an episode of agitation where she required some Ativan but after that she fell asleep Is still requiring PRN IV Dilaudid for pain control - Patient Data Vitals - Most Recent: Last Vital Signs Temp 97.9 F 12/05/19 12:44 Pulse 117 H 12/06/19 10:49 Resp 16 12/06/19 10:49 BP 109/81 12/06/19 10:49 Pulse Ox 94 L 12/06/19 10:49 Weight - Most Recent: 68.492 kg - Exam Quality Assessment: Supplemental Oxygen General: Other (asleep ) HEENT: No: Mucous Membr. Moist/[place] (dry) Neck: Trachea Midline, No JVD Lungs: Decreased Breath Sounds. No: Crackles, Rales, Rhonchi, Rub, Stridor, Wheezing Cardiovascular: Regular Rate, Regular Rhythm. No: Murmurs, Gallops, Rubs GI/Abdominal Exam: Distended Sepsis Event Note - Evaluation Sepsis Screening Result: No Definite Risk - Focused Exam Vital Signs: Vital Signs Pulse Resp BP Pulse Ox 12/06/19 10:49 117 H 16 109/81 94 L Date Exam was Performed: 12/06/19 Time Exam was Performed: 12:02 - Problem List & Annotations (1) Comfort measures only status SNOMED Code(s): 20005774059656 Code(s): Z51.5 - ENCOUNTER FOR PALLIATIVE CARE Status: Acute Current Visit: Yes (2) Atrial fibrillation with rapid ventricular response SNOMED Code(s): 178597962047406 Code(s): I48.91 - UNSPECIFIED ATRIAL FIBRILLATION Status: Acute Current Visit: Yes (3) Volume depletion SNOMED Code(s): 623044480 Code(s): E86.9 - VOLUME DEPLETION, UNSPECIFIED Status: Acute Current Visit: Yes (4) 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 SNOMED Code(s): 468200344, 472054626 Code(s): C23 - MALIGNANT NEOPLASM OF GALLBLADDER Status: Acute Current Visit: Yes (5) Lactic acid increased SNOMED Code(s): 57648515 Code(s): E87.2 - ACIDOSIS Status: Acute Current Visit: Yes (6) Nausea and vomiting SNOMED Code(s): 09952811 Code(s): R11.2 - NAUSEA WITH VOMITING, UNSPECIFIED Status: Acute Current Visit: Yes Qualifiers: Vomiting type: unspecified Vomiting Intractability: non-intractable Qualified Code(s): R11.2 - Nausea with vomiting, unspecified (7) Inadequate pain control SNOMED Code(s): 754236049 Code(s): R52 - PAIN, UNSPECIFIED Status: Acute Current Visit: Yes (8) Urinary tract infection SNOMED Code(s): 16677553 Code(s): N39.0 - URINARY TRACT INFECTION, SITE NOT SPECIFIED Status: Acute Current Visit: Yes Qualifiers: Urinary tract infection type: acute cystitis Hematuria presence: with hematuria Qualified Code(s): N30.01 - Acute cystitis with hematuria (9) Constipation SNOMED Code(s): 77390176 Code(s): K59.00 - CONSTIPATION, UNSPECIFIED Status: Acute Current Visit: Yes - Problem List Review Problem List Initiated/Reviewed/Updated: Yes - Plan Plan:: Comfort care only status Suboptimal pain control 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 fib and RVR in the emergency department controlled with IV diltiazem Started on PO diltiazem--> patient is asymptomatic and has been more or less rate controlled As for her pain prior to admission patient was taking MS Contin 15 mg twice a day and had a 12 mg fentanyl patch -Fentanyl patch was increased to 25 on admission -PRN Dilaudid was ordered for breakthrough pain -Adjustments according to needs this morning were made - MS Contin 45 mg 3 times a day - Fentanyl patch 50 - PRN Dilaudid every hour for breakthrough Discussion was had with patient's , son and daughter in patient's room regarding goals of care - Family and patient requesting home with hospice - Discussed poor prognosis - Family and patient aware of prognosis and requesting patient care to be focused only on her comfort - 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 with 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 and they agreed - All questions were answered PLAN - Increased Fentanyl patch - Will continue MS Contin for 3 days while patch reaches steady state - PRN Dilaudid still in place - Nursing assessment 1/shift - Vital signs as needed - Scheduled Zofran and Simethicone - PRN Morphine, Ativan, Haldol, Zofran - Palliative care management only - Avoid unnecessary interruptions 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 Atrial fibrillation, rate controlled on Eliquis UTI 2/2 Klebsiella Nausea and vomiting Lactic acid increased Inadequate pain control Volume depletion, resolved Rapid ventricular rate, resolved PROPHYLAXIS: discontinued CODE STATUS: Comfort care status DISPOSITION: Patient's mental status has significantly decreased in past 24 hours, will continue to monitor and provide symptomatic treatment. PROGNOSIS IS VERY GUARDED AT THIS TIME
[2019-12-06] MEDS: Haloperidol Lactate 5 MG/ML SDV IVPUSH PRN (14:50)
[2019-12-06] MEDS: Morphine 10 MG/0.5 ML Oral Syringe PO SCH (21:22)
[2019-12-06] MEDS: Glycopyrrolate 0.2 MG/ML SDV IVPUSH PRN (22:01)
[2019-12-07] MEDS: Morphine 4 MG/ML VIAL IVPUSH PRN ×7 (00:10→20:28)
[2019-12-07] MEDS: Glycopyrrolate 0.2 MG/ML SDV IVPUSH PRN ×7 (00:13→18:42)
[2019-12-07] MEDS: LORazepam 2 MG/ML SDV IVPUSH PRN ×2 (02:24→03:55)
[2019-12-07] MEDS: HYDROmorphone 1 MG/ML Syringe IVPUSH PRN (03:54)
[2019-12-07] MEDS: Ondansetron 4 MG/2 ML SDV IVPUSH SCH ×5 (04:03→20:31)
[2019-12-07] MEDS: Morphine 10 MG/0.5 ML Oral Syringe PO SCH ×3 (05:50→22:12)
[2019-12-07] MEDS: Simethicone 80 MG Tab.Chew PO SCH (06:55)
[2019-12-07] MEDS: Carboxymethylcellulose Sodium 1% Ophth Gel 15 ML Bottle EYEBOTH PRN ×2 (08:10→16:29)
[2019-12-07] MEDS: Docusate Sodium 100 MG Cap PO SCH (08:37)
[2019-12-07] MEDS: Polyethylene Glycol 3350 Powder 17 GM Packet PO SCH (08:37)
[2019-12-07] MEDS: Atropine Sulfate Ophth 2 ML Drops SL PRN ×5 (08:44→18:43)
[2019-12-07] MEDS ORDERED: Scopolamine 1.5 MG Transdermal Patch TOP ONE (09:00)
[2019-12-07] MEDS ORDERED: Acetaminophen 650 MG Supp RECTAL PRN (10:15)
--- NOTE | 2019-12-07 13:21 | PCM.PN ---
- General Info Date of Service: 12/07/19 Subjective Update: Unresponsive since yesterday Significant oral secretions Off O2 - Patient Data Vitals - Most Recent: Last Vital Signs Temp 97.9 F 12/05/19 12:44 Pulse 84 12/07/19 08:39 Resp 18 12/07/19 08:11 BP 74/46 L 12/07/19 08:11 Pulse Ox 94 L 12/06/19 10:49 Weight - Most Recent: 71.214 kg - Exam General: Sedated HEENT: No: Mucous Membr. Moist/[place] Neck: JVD Lungs: Rales, Rhonchi Cardiovascular: Tachycardia Peripheral Pulses: 2+: Carotid (L), Carotid (R), Radial (L), Radial (R) Sepsis Event Note - Evaluation Sepsis Screening Result: No Definite Risk - Problem List & Annotations (1) Comfort measures only status SNOMED Code(s): 63895945823792 Code(s): Z51.5 - ENCOUNTER FOR PALLIATIVE CARE Status: Acute Current Visit: Yes (2) Atrial fibrillation with rapid ventricular response SNOMED Code(s): 875866925868263 Code(s): I48.91 - UNSPECIFIED ATRIAL FIBRILLATION Status: Acute Current Visit: Yes (3) Volume depletion SNOMED Code(s): 527304042 Code(s): E86.9 - VOLUME DEPLETION, UNSPECIFIED Status: Acute Current Visit: Yes (4) 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 SNOMED Code(s): 203574940, 375774531 Code(s): C23 - MALIGNANT NEOPLASM OF GALLBLADDER Status: Acute Current Visit: Yes (5) Lactic acid increased SNOMED Code(s): 05185280 Code(s): E87.2 - ACIDOSIS Status: Acute Current Visit: Yes (6) Nausea and vomiting SNOMED Code(s): 20570523 Code(s): R11.2 - NAUSEA WITH VOMITING, UNSPECIFIED Status: Acute Current Visit: Yes Qualifiers: Vomiting type: unspecified Vomiting Intractability: non-intractable Qualified Code(s): R11.2 - Nausea with vomiting, unspecified (7) Inadequate pain control SNOMED Code(s): 953714396 Code(s): R52 - PAIN, UNSPECIFIED Status: Acute Current Visit: Yes (8) Urinary tract infection SNOMED Code(s): 30086193 Code(s): N39.0 - URINARY TRACT INFECTION, SITE NOT SPECIFIED Status: Acute Current Visit: Yes Qualifiers: Urinary tract infection type: acute cystitis Hematuria presence: with hematuria Qualified Code(s): N30.01 - Acute cystitis with hematuria (9) Constipation SNOMED Code(s): 99779023 Code(s): K59.00 - CONSTIPATION, UNSPECIFIED Status: Acute Current Visit: Yes - Problem List Review Problem List Initiated/Reviewed/Updated: Yes - Plan Plan:: Comfort care only status Suboptimal pain control 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 fib and RVR in the emergency department controlled with IV diltiazem Started on PO diltiazem--> patient is asymptomatic and has been more or less rate controlled As for her pain prior to admission patient was taking MS Contin 15 mg twice a day and had a 12 mg fentanyl patch -Fentanyl patch was increased to 25 on admission -PRN Dilaudid was ordered for breakthrough pain -Adjustments according to needs this morning were made - MS Contin 45 mg 3 times a day - Fentanyl patch 50 - PRN Dilaudid every hour for breakthrough Discussion was had with patient's , son and daughter in patient's room regarding goals of care--> decision was made to convert to comfort status Medications adjusted for pain control needs Off oxygen since 12/05 PLAN - Currently on Fentanyl patch and liquid long acting morphine - Discontinued all PO medications - No more VS by nursing - Suction as needed - Started scopolamine and atropine - PRN Morphine, Ativan, Haldol, Zofran 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 PROGNOSIS IS VERY GUARDED AT THIS TIME
[2019-12-08] MEDS: HYDROmorphone 1 MG/ML Syringe IVPUSH PRN (00:34)
[2019-12-08] MEDS: LORazepam 2 MG/ML SDV IVPUSH PRN ×3 (00:39→14:21)
[2019-12-08] MEDS: Ondansetron 4 MG/2 ML SDV IVPUSH SCH ×6 (03:06→21:13)
[2019-12-08] MEDS: Morphine 10 MG/0.5 ML Oral Syringe PO SCH ×3 (06:06→21:16)
[2019-12-08] MEDS: Glycopyrrolate 0.2 MG/ML SDV IVPUSH PRN ×4 (08:02→18:12)
[2019-12-08] MEDS: Atropine Sulfate Ophth 2 ML Drops SL PRN ×3 (08:02→18:12)
[2019-12-08] MEDS: Morphine 4 MG/ML VIAL IVPUSH PRN ×3 (10:26→18:12)
--- NOTE | 2019-12-08 13:23 | PCM.PN ---
- General Info Date of Service: 12/08/19 Admission Dx/Problem (Free Text): Admission Diagnosis/Problem Admission Diagnosis/Problem Atrial fibrillation with rapid ventricular response Subjective Update: Patient continues to be unresponsive. She is off oxygen and has not taken anything orally. - Patient Data Vitals - Most Recent: Last Vital Signs Temp 97.9 F 12/05/19 12:44 Pulse 84 12/07/19 08:39 Resp 18 12/07/19 08:11 BP 74/46 L 12/07/19 08:11 Pulse Ox 94 L 12/06/19 10:49 Weight - Most Recent: 157 lb I&O - Last 24 Hours: Intake & Output 12/07/19 12/08/19 12/08/19 22:59 06:59 14:59 Intake Total 0 Output Total 0 Balance 0 [place] Results Last 24 Hours: Microbiology 12/02/19 00:11 Aerobic Blood Culture - Preliminary Blood - Venous - Lab Draw NO GROWTH AFTER 5 DAYS Anaerobic Blood Culture - Preliminary NO GROWTH AFTER 5 DAYS 12/02/19 23:26 Aerobic Blood Culture - Preliminary Blood - Venous NO GROWTH AFTER 5 DAYS Anaerobic Blood Culture - Final Med Orders - Current: Current Medications Acetaminophen (Tylenol) 650 mg RECTAL Q4H PRN PRN Reason: Pain/Fever Artificial Tears (Refresh Liquigel 1%) 1 - 2 ml EYEBOTH QID PRN; Protocol PRN Reason: Dry Eyes Last Admin: 12/07/19 16:29 Dose: 1 drop Atropine Sulfate (Atropine 1%) 0 ml SL Q2H PRN PRN Reason: secretions Last Admin: 12/08/19 12:45 Dose: 2 drop Fentanyl (Duragesic) 50 mcg TRDERM Q72H [facility] Last Admin: 12/06/19 09:07 Dose: 50 mcg Glucose Oxid/Lactoperoxid/Muramidas (Biotene Oralbalance Gel) 0 gm MUCMEM ASDIRECTED PRN PRN Reason: dry mouth Glycopyrrolate (Robinul) 0.2 mg IVPUSH Q2HR PRN PRN Reason: secretion Last Admin: 12/08/19 12:42 Dose: 0.2 mg Haloperidol Lactate (Haldol) 1 mg IVPUSH Q1H PRN PRN Reason: delirium or restlessness Last Admin: 12/06/19 14:50 Dose: 1 mg Hydromorphone HCl (Dilaudid) 1 mg IVPUSH Q1H PRN PRN Reason: Breakthrough Pain Last Admin: 12/08/19 00:34 Dose: 1 mg Levalbuterol HCl (Xopenex) 1.25 mg NEB Q8HRRT PRN PRN Reason: comfort Lorazepam (Ativan) 1.5 mg IVPUSH Q15M PRN PRN Reason: Anxiety Last Admin: 12/08/19 08:04 Dose: 1.5 mg Miscellaneous Information (Remove Patch) 0 ea TRDERM Q72H [facility] Last Admin: 12/06/19 09:11 Dose: 1 ea Miscellaneous Information (Remove Patch) 0 ea TRDERM ONETIME ONE Stop: 12/10/19 09:01 Morphine Sulfate (Morphine) 4 mg IVPUSH Q30M PRN PRN Reason: Pain or Shortness of breath Last Admin: 12/08/19 12:40 Dose: 4 mg Morphine Sulfate (Morphine 10 Mg/0.5 Ml Oral Syringe) 45 mg PO Q8HR [facility] [place] Last Admin: 12/08/19 06:06 Dose: 45 mg Ondansetron HCl (Zofran) 4 mg IVPUSH Q4H [facility] [place] Last Admin: 12/08/19 12:47 Dose: Not Given Discontinued Medications Acetaminophen (Tylenol) 650 mg PO Q4H PRN PRN Reason: Pain/Fever Apixaban (Eliquis) 5 mg PO BID [facility] [place] Last Admin: 12/05/19 08:08 Dose: 5 mg Diltiazem HCl (Cardizem) 20 mg IVPUSH ONETIME ONE Stop: 12/03/19 00:13 Last Admin: 12/03/19 00:19 Dose: 20 mg Diltiazem HCl (Cardizem) 20 mg IVPUSH ONETIME ONE Stop: 12/03/19 02:04 Last Admin: 12/03/19 02:09 Dose: 20 mg Diltiazem HCl (Cardizem) 20 mg IVPUSH Q4H PRN PRN Reason: HEART RATE OVER 120 Last Admin: 12/04/19 06:30 Dose: 20 mg Diltiazem HCl (Cardizem Cd) 180 mg PO BEDTIME [facility] Last Admin: 12/03/19 20:10 Dose: 180 mg Diltiazem HCl (Cardizem) 120 mg PO Q8HR [facility] [place] Last Admin: 12/05/19 05:41 Dose: 120 mg Docusate Sodium (Colace) 100 mg PO TID [facility] [place] Last Admin: 12/07/19 08:37 Dose: Not Given Fentanyl (Duragesic) 25 mcg TOP Q72H [facility] Stop: 12/06/19 10:30 Last Admin: 12/03/19 11:18 Dose: 25 mcg Furosemide (Lasix) 20 mg IVPUSH ONETIME ONE Stop: 12/05/19 09:01 Last Admin: 12/05/19 08:05 Dose: 20 mg Hydromorphone HCl (Dilaudid) 1 mg IVPUSH ONETIME ONE Stop: 12/02/19 22:58 Last Admin: 12/02/19 23:05 Dose: 1 mg Hydromorphone HCl (Dilaudid) 0.5 mg IVPUSH Q2H PRN PRN Reason: Breakthrough Pain Last Admin: 12/03/19 05:20 Dose: 0.5 mg Hydromorphone HCl (Dilaudid) 1 mg IVPUSH Q4H PRN PRN Reason: Pain Last Admin: 12/04/19 15:15 Dose: 1 mg Hydromorphone HCl (Dilaudid) 1 mg IVPUSH Q2H PRN PRN Reason: Pain Last Admin: 12/05/19 08:05 Dose: 1 mg Sodium Chloride (Normal Saline) 1,000 mls @ 1,000 mls/hr IV ASDIRECTED [facility] Last Admin: 12/03/19 01:01 Dose: 1,000 mls/hr Ceftriaxone Sodium 1 gm/ (Sodium Chloride) 100 mls @ 200 mls/hr IV ONETIME ONE Stop: 12/03/19 00:38 Last Admin: 12/03/19 00:19 Dose: 200 mls/hr Piperacillin Sod/Tazobactam (Sod 4.5 gm/ Sodium Chloride) 100 mls @ 200 mls/hr IV ONETIME ONE Stop: 12/03/19 02:10 Last Admin: 12/03/19 01:50 Dose: 200 mls/hr Sodium Chloride (Normal Saline) 1,000 mls @ 200 mls/hr IV ASDIRECTED [facility] [place] Last Admin: 12/03/19 02:46 Dose: 200 mls/hr Lactated Ringer's (Ringers, Lactated) 1,000 mls @ 999 mls/hr IV .BOLUS ONE Stop: 12/03/19 07:21 Last Admin: 12/03/19 06:29 Dose: 999 mls/hr Lactated Ringer's (Ringers, Lactated) 1,000 mls @ 200 mls/hr IV ASDIRECTED [facility] [place] Last Admin: 12/03/19 22:48 Dose: 200 mls/hr Ceftriaxone Sodium 2 gm/ (Sodium Chloride) 100 mls @ 200 mls/hr IV Q24H [facility] [place] Stop: 12/05/19 10:59 Last Admin: 12/05/19 10:30 Dose: 200 mls/hr Lactulose (Cephulac) 20 gm PO Q6H [facility] [place] Last Admin: 12/05/19 01:41 Dose: Not Given Levalbuterol HCl (Xopenex) 0.63 mg NEB Q8HRRT [facility] [place] Last Admin: 12/06/19 05:30 Dose: Not Given Levothyroxine Sodium (Levothyroxine) 25 mcg PO ACBREAKFAST [facility] [place] Last Admin: 12/05/19 05:42 Dose: 25 mcg Magnesium Citrate (Citrate Of Magnesia) 296 ml PO ONETIME ONE Stop: 12/03/19 02:05 Last Admin: 12/03/19 02:09 Dose: 296 ml Metoprolol Succinate (Toprol Xl) 200 mg PO DAILY [facility] [place] Last Admin: 12/05/19 08:06 Dose: 200 mg Miscellaneous Information (Remove Patch) 0 ea TRDERM Q72H [facility] [place] Last Admin: 12/03/19 11:21 Dose: 1 ea Miscellaneous Information (Remove Patch) 1 ea TRDERM Q72H [facility] [place] Morphine Sulfate (Ms Contin) 15 mg PO BID [facility] [place] Last Admin: 12/05/19 08:07 Dose: 15 mg Morphine Sulfate (Ms Contin) 45 mg PO Q8H [facility] [place] Last Admin: 12/06/19 03:04 Dose: 30 mg Morphine Sulfate (Ms Contin) 45 mg PO Q12HR [facility] [place] Morphine Sulfate (Ms Contin) 45 mg PO Q8H [facility] [place] Last Admin: 12/06/19 11:23 Dose: Not Given Ondansetron HCl (Zofran) 4 mg IVPUSH ONETIME ONE Stop: 12/02/19 22:57 Last Admin: 12/02/19 23:03 Dose: 4 mg Ondansetron HCl (Zofran) 4 mg IVPUSH Q4H PRN PRN Reason: Nausea/Vomiting Last Admin: 12/03/19 03:40 Dose: 4 mg Ondansetron HCl (Zofran) 4 mg IVPUSH Q8H [facility] [place] Last Admin: 12/05/19 12:24 Dose: 4 mg Pantoprazole Sodium (Protonix) 40 mg PO DAILY [facility] [place] Last Admin: 12/05/19 08:07 Dose: 40 mg Polyethylene Glycol (Miralax) 17 gm PO BID [facility] [place] Last Admin: 12/07/19 08:37 Dose: Not Given Scopolamine (Transderm-Scop) 1.5 mg TOP ONETIME ONE Stop: 12/07/19 09:01 Last Admin: 12/07/19 08:44 Dose: 1.5 mg Simethicone (Simethicone) 80 mg PO TIDAC [facility] Last Admin: 12/07/19 06:55 Dose: Not Given - Exam General: Other (Unresponsive) Lungs: Rales, Rhonchi, Other (Agonal breathing) Cardiovascular: Regular Rate, Regular Rhythm Sepsis Event Note - Evaluation Sepsis Screening Result: No Definite Risk - Problem List Review Problem List Initiated/Reviewed/Updated: Yes - My Orders Last 24 Hours: My Active Orders 12/08/19 10:31 Communication Order [RC] DAILY - Plan Plan:: Comfort care only status Suboptimal pain control 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 fib and RVR in the emergency department controlled with IV diltiazem Started on PO diltiazem--> patient is asymptomatic and has been more or less rate controlled As for her pain prior to admission patient was taking MS Contin 15 mg twice a day and had a 12 mg fentanyl patch -Fentanyl patch was increased to 25 on admission -PRN Dilaudid was ordered for breakthrough pain -Adjustments according to needs this morning were made - MS Contin 45 mg 3 times a day - Fentanyl patch 50 - PRN Dilaudid every hour for breakthrough Discussion was had with patient's , son and daughter in patient's room regarding goals of care--> decision was made to convert to comfort status Medications adjusted for pain control needs Off oxygen since 12/05 PLAN - Currently on Fentanyl patch and liquid long acting morphine - Discontinued all PO medications - No more VS by nursing - Suction as needed - Scopolamine and atropine - PRN Morphine, Ativan, Haldol, Zofran 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
[2019-12-09] MEDS: Ondansetron 4 MG/2 ML SDV IVPUSH SCH ×4 (04:52→13:48)
[2019-12-09] MEDS: Glycopyrrolate 0.2 MG/ML SDV IVPUSH PRN ×3 (04:54→10:21)
[2019-12-09] MEDS: Morphine 10 MG/0.5 ML Oral Syringe PO SCH (05:02)
[2019-12-09] MEDS: HYDROmorphone 1 MG/ML Syringe IVPUSH PRN (05:58)
[2019-12-09] MEDS: Morphine 4 MG/ML VIAL IVPUSH PRN ×3 (08:12→10:57)
[2019-12-09] MEDS: Atropine Sulfate Ophth 2 ML Drops SL PRN (08:16)
[2019-12-09] MEDS: fentaNYL 50 MCG/HR Transdermal Patch TRDERM SCH (08:22)
[2019-12-09] MEDS: Haloperidol Lactate 5 MG/ML SDV IVPUSH PRN (10:58)
--- NOTE | 2019-12-09 11:24 | PCM.DCSUM1 ---
Discharge Summary - Hospital Course HPI Initial Comments: This is a 79-year-old female with past medical history of atrial fibrillation on Eliquis as well as metastatic gallbladder cancer diagnosed in August of this year who comes to the emergency department for abdominal pain and nausea and vomiting. As per patient the past couple of months he has been having decreased oral intake, tolerating only liquids. Yesterday she had some broth around 6 PM and an hour and half later started vomiting. As for her abdominal pain she grades at 7/10, unable to localize any specific part of her stomach, nonradiating, with no associated symptoms other than the nausea and vomiting. Diagnosis: Stroke: No - Discharge Data Discharge Date: 12/09/19 Discharge Disposition: Condition: - Referral to Home Health Primary Care Physician: Jani Saldivar MD - Patient Summary/Data Consults: Consultations 12/05/19 06:25 Consult to Case Management/Intern Brand [CONS] Routine Hospital Course: Patient was admitted in atrial fibrillation with RVR. In the emergency department she was controlled with IV diltiazem and started on oral diltiazem. Decision was made to convert patient to comfort status and medications were adjusted. Patient was on fentanyl and morphine for pain and routine medications were stopped. Patient passed on December 09, 2019 at 1111. - Discharge Plan *PRESCRIPTION DRUG MONITORING PROGRAM REVIEWED*: No *COPY OF PRESCRIPTION DRUG MONITORING REPORT IN PATIENT GA: No Home Medications: Home Meds Apixaban [Eliquis] 5 mg PO BID 11/02/17 [History] Levothyroxine 25 mcg PO DAILY 11/02/17 [History] Cholecalciferol (Vitamin D3) [Vitamin D3] 1,000 unit PO DAILY 08/23/19 [History] Cranberry Fruit Extract [Cranberry] 300 mg PO DAILY 08/23/19 [History] Docusate Sodium [Colace] 100 mg PO TID 08/23/19 [History] Ferrous Sulfate [Iron] 325 mg PO DAILY 08/23/19 [History] Glucosam/Deep-Col.Cplx/D3/C/Mn [Fwipedcgxof-Ghdedcoxkcw-J4] 1 tab PO DAILY 08/23 [History] Hydrocodone/Acetaminophen [[place] 10-325 Tablet] 1 tab PO Q6HR PRN 10/28/19 [ History] Morphine Sulfate [Morphine Sulfate ER] 15 mg PO BID 10/28/19 [History] Sennosides [Senokot] 8.6 mg PO ASDIRECTED PRN 10/28/19 [History] Cyanocobalamin (Vitamin B-12) [Vitamin B-12] 2,500 mcg PO DAILY 12/03/19 [ History] Hydrocodone/Acetaminophen [Hydrocodone-Acetamin 7.5-325] 1 tab PO Q6HR PRN 12/02 [History] Metoprolol Succinate 200 mg PO DAILY 12/03/19 [History] Omeprazole 20 mg PO DAILY 12/03/19 [History] Pantoprazole [ProTONIX] 40 mg PO DAILY 12/03/19 [History] dilTIAZem HCL [Cartia Xt] 180 mg PO BEDTIME 12/03/19 [History] fentaNYL [Fentanyl] 12 mcg TOP ASDIRECTED 12/03/19 [History] polyethylene glycoL 3350 [Clearlax] 5 ml PO BID 12/03/19 [History] Patient Handouts: End-of-Life [facility] - Discharge Summary/Plan Comment DC Time >30 min.: No Discharge Summary/Plan Comment: Patient secondary to metastatic gallbladder cancer. - General Info Date of Service: 12/09/19 Admission Dx/Problem (Free Text: Admission Diagnosis/Problem Admission Diagnosis/Problem Atrial fibrillation with rapid ventricular response Functional Status: Reports: Pain Controlled - Patient Data Vitals - Most Recent: Last Vital Signs Temp 97.9 F 12/05/19 12:44 Pulse 84 12/07/19 08:39 Resp 18 12/07/19 08:11 BP 74/46 L 12/07/19 08:11 Pulse Ox 94 L 12/06/19 10:49 Weight - Most Recent: 157 lb I&O - Last 24 hours: Intake & Output 12/08/19 12/09/19 12/09/19 22:59 06:59 14:59 Intake Total 0 Output Total 0 Balance 0 [place] Results - Last 24 hrs: Microbiology 12/02/19 00:11 Aerobic Blood Culture - Preliminary Blood - Venous - Lab Draw NO GROWTH AFTER 6 DAYS Anaerobic Blood Culture - Preliminary NO GROWTH AFTER 6 DAYS 12/02/19 23:26 Aerobic Blood Culture - Preliminary Blood - Venous NO GROWTH AFTER 6 DAYS Anaerobic Blood Culture - Final Med Orders - Current: Current Medications Acetaminophen (Tylenol) 650 mg RECTAL Q4H PRN PRN Reason: Pain/Fever Artificial Tears (Refresh Liquigel 1%) 1 - 2 ml EYEBOTH QID PRN; Protocol PRN Reason: Dry Eyes Last Admin: 12/07/19 16:29 Dose: 1 drop Atropine Sulfate (Atropine 1%) 0 ml SL Q2H PRN PRN Reason: secretions Last Admin: 12/09/19 08:16 Dose: 2 drop Fentanyl (Duragesic) 50 mcg TRDERM Q72H [facility] Last Admin: 12/09/19 08:22 Dose: 50 mcg Glucose Oxid/Lactoperoxid/Muramidas (Biotene Oralbalance Gel) 0 gm MUCMEM ASDIRECTED PRN PRN Reason: dry mouth Glycopyrrolate (Robinul) 0.2 mg IVPUSH Q2HR PRN PRN Reason: secretion Last Admin: 12/09/19 10:21 Dose: 0.2 mg Haloperidol Lactate (Haldol) 1 mg IVPUSH Q1H PRN PRN Reason: delirium or restlessness Last Admin: 12/09/19 10:58 Dose: 1 mg Hydromorphone HCl (Dilaudid) 1 mg IVPUSH Q1H PRN PRN Reason: Breakthrough Pain Last Admin: 12/09/19 05:58 Dose: 1 mg Levalbuterol HCl (Xopenex) 1.25 mg NEB Q8HRRT PRN PRN Reason: comfort Lorazepam (Ativan) 1.5 mg IVPUSH Q15M PRN PRN Reason: Anxiety Last Admin: 12/08/19 14:21 Dose: 1.5 mg Miscellaneous Information (Remove Patch) 0 ea TRDERM Q72H [facility] Last Admin: 12/09/19 08:24 Dose: 1 ea Miscellaneous Information (Remove Patch) 0 ea TRDERM ONETIME ONE Stop: 12/10/19 09:01 Morphine Sulfate (Morphine) 4 mg IVPUSH Q30M PRN PRN Reason: Pain or Shortness of breath Last Admin: 12/09/19 10:57 Dose: 4 mg Morphine Sulfate (Morphine 10 Mg/0.5 Ml Oral Syringe) 45 mg PO Q8HR [facility] Last Admin: 12/09/19 05:02 Dose: 45 mg Ondansetron HCl (Zofran) 4 mg IVPUSH Q4H [facility] Last Admin: 12/09/19 08:12 Dose: Not Given Discontinued Medications Acetaminophen (Tylenol) 650 mg PO Q4H PRN PRN Reason: Pain/Fever Apixaban (Eliquis) 5 mg PO BID [facility] Last Admin: 12/05/19 08:08 Dose: 5 mg Diltiazem HCl (Cardizem) 20 mg IVPUSH ONETIME ONE Stop: 12/03/19 00:13 Last Admin: 12/03/19 00:19 Dose: 20 mg Diltiazem HCl (Cardizem) 20 mg IVPUSH ONETIME ONE Stop: 12/03/19 02:04 Last Admin: 12/03/19 02:09 Dose: 20 mg Diltiazem HCl (Cardizem) 20 mg IVPUSH Q4H PRN PRN Reason: HEART RATE OVER 120 Last Admin: 12/04/19 06:30 Dose: 20 mg Diltiazem HCl (Cardizem Cd) 180 mg PO BEDTIME [facility] Last Admin: 12/03/19 20:10 Dose: 180 mg Diltiazem HCl (Cardizem) 120 mg PO Q8HR [facility] Last Admin: 12/05/19 05:41 Dose: 120 mg Docusate Sodium (Colace) 100 mg PO TID [facility] Last Admin: 12/07/19 08:37 Dose: Not Given Fentanyl (Duragesic) 25 mcg TOP Q72H [facility] Stop: 12/06/19 10:30 Last Admin: 12/03/19 11:18 Dose: 25 mcg Furosemide (Lasix) 20 mg IVPUSH ONETIME ONE Stop: 12/05/19 09:01 Last Admin: 12/05/19 08:05 Dose: 20 mg Hydromorphone HCl (Dilaudid) 1 mg IVPUSH ONETIME ONE Stop: 12/02/19 22:58 Last Admin: 12/02/19 23:05 Dose: 1 mg Hydromorphone HCl (Dilaudid) 0.5 mg IVPUSH Q2H PRN PRN Reason: Breakthrough Pain Last Admin: 12/03/19 05:20 Dose: 0.5 mg Hydromorphone HCl (Dilaudid) 1 mg IVPUSH Q4H PRN PRN Reason: Pain Last Admin: 12/04/19 15:15 Dose: 1 mg Hydromorphone HCl (Dilaudid) 1 mg IVPUSH Q2H PRN PRN Reason: Pain Last Admin: 12/05/19 08:05 Dose: 1 mg Sodium Chloride (Normal Saline) 1,000 mls @ 1,000 mls/hr IV ASDIRECTED [facility] Last Admin: 12/03/19 01:01 Dose: 1,000 mls/hr Ceftriaxone Sodium 1 gm/ (Sodium Chloride) 100 mls @ 200 mls/hr IV ONETIME ONE Stop: 12/03/19 00:38 Last Admin: 12/03/19 00:19 Dose: 200 mls/hr Piperacillin Sod/Tazobactam (Sod 4.5 gm/ Sodium Chloride) 100 mls @ 200 mls/hr IV ONETIME ONE Stop: 12/03/19 02:10 Last Admin: 12/03/19 01:50 Dose: 200 mls/hr Sodium Chloride (Normal Saline) 1,000 mls @ 200 mls/hr IV ASDIRECTED [facility] Last Admin: 12/03/19 02:46 Dose: 200 mls/hr Lactated Ringer's (Ringers, Lactated) 1,000 mls @ 999 mls/hr IV .BOLUS ONE Stop: 12/03/19 07:21 Last Admin: 12/03/19 06:29 Dose: 999 mls/hr Lactated Ringer's (Ringers, Lactated) 1,000 mls @ 200 mls/hr IV ASDIRECTED [facility] Last Admin: 12/03/19 22:48 Dose: 200 mls/hr Ceftriaxone Sodium 2 gm/ (Sodium Chloride) 100 mls @ 200 mls/hr IV Q24H [facility] Stop: 12/05/19 10:59 Last Admin: 12/05/19 10:30 Dose: 200 mls/hr Lactulose (Cephulac) 20 gm PO Q6H [facility] Last Admin: 12/05/19 01:41 Dose: Not Given Levalbuterol HCl (Xopenex) 0.63 mg NEB Q8HRRT [facility] Last Admin: 12/06/19 05:30 Dose: Not Given Levothyroxine Sodium (Levothyroxine) 25 mcg PO ACBREAKFAST [facility] Last Admin: 12/05/19 05:42 Dose: 25 mcg Magnesium Citrate (Citrate Of Magnesia) 296 ml PO ONETIME ONE Stop: 12/03/19 02:05 Last Admin: 12/03/19 02:09 Dose: 296 ml Metoprolol Succinate (Toprol Xl) 200 mg PO DAILY [facility] Last Admin: 12/05/19 08:06 Dose: 200 mg Miscellaneous Information (Remove Patch) 0 ea TRDERM Q72H [facility] Last Admin: 12/03/19 11:21 Dose: 1 ea Miscellaneous Information (Remove Patch) 1 ea TRDERM Q72H [facility] Morphine Sulfate (Ms Contin) 15 mg PO BID [facility] Last Admin: 12/05/19 08:07 Dose: 15 mg Morphine Sulfate (Ms Contin) 45 mg PO Q8H [facility] Last Admin: 12/06/19 03:04 Dose: 30 mg Morphine Sulfate (Ms Contin) 45 mg PO Q12HR [facility] Morphine Sulfate (Ms Contin) 45 mg PO Q8H [facility] Last Admin: 12/06/19 11:23 Dose: Not Given Ondansetron HCl (Zofran) 4 mg IVPUSH ONETIME ONE Stop: 12/02/19 22:57 Last Admin: 12/02/19 23:03 Dose: 4 mg Ondansetron HCl (Zofran) 4 mg IVPUSH Q4H PRN PRN Reason: Nausea/Vomiting Last Admin: 12/03/19 03:40 Dose: 4 mg Ondansetron HCl (Zofran) 4 mg IVPUSH Q8H [facility] Last Admin: 12/05/19 12:24 Dose: 4 mg Pantoprazole Sodium (Protonix) 40 mg PO DAILY [facility] Last Admin: 12/05/19 08:07 Dose: 40 mg Polyethylene Glycol (Miralax) 17 gm PO BID [facility] Last Admin: 12/07/19 08:37 Dose: Not Given Scopolamine (Transderm-Scop) 1.5 mg TOP ONETIME ONE Stop: 12/07/19 09:01 Last Admin: 12/07/19 08:44 Dose: 1.5 mg Simethicone (Simethicone) 80 mg PO TIDAC [facility] Last Admin: 12/07/19 06:55 Dose: Not Given - Exam General: Reports: Other ( was confirmed by visually no chest rise, auscultation, palpation of the carotid arteries, and no pupillary reactivity to light.)
== END 2019-12-09 11:11 | disposition expired | DRG 844 ==
LOC: JD.ED 22:00 → JD.MS 12-03 03:05
PROVIDERS: ADMIT Internal Medicine; ATTEND Internal Medicine
DX: R10.11 Right upper quadrant pain (principal); C79.89 Secondary malignant neoplasm of other specified sites; E87.2 Acidosis; C23 Malignant neoplasm of gallbladder; N30.01 Acute cystitis with hematuria; E86.0 Dehydration; I48.91 Unspecified atrial fibrillation; Z51.5 Encounter for palliative care; Z66 Do not resuscitate; B96.1 Klebsiella pneumoniae [K. pneumoniae] as the cause of diseases classified elsewhere; R74.0 Nonspecific elevation of levels of transaminase and lactic acid dehydrogenase [LDH]; E86.9 Volume depletion, unspecified; K59.00 Constipation, unspecified; E78.00 Pure hypercholesterolemia, unspecified; R11.2 Nausea with vomiting, unspecified; D64.9 Anemia, unspecified; Z96.89 Presence of other specified functional implants; H54.7 Unspecified visual loss; I25.10 Atherosclerotic heart disease of native coronary artery without angina pectoris; I10 Essential (primary) hypertension; K21.9 Gastro-esophageal reflux disease without esophagitis; E03.9 Hypothyroidism, unspecified; Z98.49 Cataract extraction status, unspecified eye; Z90.710 Acquired absence of both cervix and uterus; Z90.49 Acquired absence of other specified parts of digestive tract; K22.2 Esophageal obstruction; Z99.81 Dependence on supplemental oxygen; K57.90 Diverticulosis of intestine, part unspecified, without perforation or abscess without bleeding; Z88.8 Allergy status to other drugs, medicaments and biological substances; Z79.01 Long term (current) use of anticoagulants; Z79.890 Hormone replacement therapy; Z79.899 Other long term (current) drug therapy
CPT/HCPCS: 76705; 96361 ×2; 96365; 96367; 96375 ×2; 96376; 99285; 93005; 85025; 81001; 36415 ×2; 80053; 84484; 83690; 83605 ×2; 87086; 87186; 87040 ×2; 87088; J1170; A9270; J7030 ×3; J7050 ×2; J2405; J0696; J3490 ×2; J2543; 51798; 85027; 93010; 94640; 94760; 94761; 99222; 99231; 99232; 99238; J1630; J2060; J2270; J7120